=== PATIENT | female | born 1945 | race Caucasian/White ===

== ENCOUNTER → 2019-09-17 13:35 | Outpatient (BNVA) | payer MEDICARE, OTHER, SELFPAY | PROVIDERS: Family Provider Nurse Practitioner; PCP Nurse Practitioner Family; Visit Provider Nurse Practitioner Family | DX: M25.562 Pain in left knee (principal); M85.88 Other specified disorders of bone density and structure, other site | CPT/HCPCS: 73562 ==

== ENCOUNTER → 2019-11-02 15:12 | Outpatient (BNVA) | payer MEDICARE, OTHER, SELFPAY | PROVIDERS: Family Provider Nurse Practitioner; PCP Family Medicine; Visit Provider Nurse Practitioner Family | DX: M54.9 Dorsalgia, unspecified (principal); M25.551 Pain in right hip | CPT/HCPCS: 81000; 85025 ==

== ENCOUNTER → 2019-11-15 13:19 | Outpatient (BNVA) | payer MEDICARE, OTHER, SELFPAY | PROVIDERS: Family Provider Nurse Practitioner; PCP Family Medicine; Visit Provider Orthopaedic Surgery | DX: M25.511 Pain in right shoulder (principal); M19.011 Primary osteoarthritis, right shoulder | CPT/HCPCS: 73030 ==

== ENCOUNTER → 2020-01-18 12:16 | Outpatient (BNVA) | payer MEDICARE, OTHER, SELFPAY | PROVIDERS: Family Provider Nurse Practitioner; PCP Family Medicine; Visit Provider Family Medicine | DX: M25.562 Pain in left knee (principal) | CPT/HCPCS: 73562 ==

== ENCOUNTER → 2020-03-20 16:14 | Outpatient (BNVA) | payer MEDICARE, OTHER, SELFPAY | PROVIDERS: Family Provider Nurse Practitioner; PCP Family Medicine; Visit Provider Family Medicine | DX: R10.31 Right lower quadrant pain (principal); N39.0 Urinary tract infection, site not specified; R31.9 Hematuria, unspecified | CPT/HCPCS: 80053 ==

== ENCOUNTER 2020-07-04 19:59 | Emergency (ER) | payer MEDICARE, OTHER, SELFPAY ==
[2020-07-04] VITALS (7 sets, daily range): BP systolic 113–160; BP diastolic 75–94; PULSE 88–96; RESP 16–18; TEMP 37.4; O2SAT 97–99; BMI 24.3
--- NOTE | 2020-07-04 20:18 | CTR_ITS ---
PROCEDURE INFORMATION: Exam: CT Head Without Contrast Exam date and time: 07/04/2020 8:24 PM Age: 74 years old Clinical indication: Injury or trauma; Fall; Blunt trauma (contusions or hematomas); Without loss of consciousness; Additional info: Fall, weakness TECHNIQUE: Imaging protocol: Computed tomography of the head without contrast. Radiation optimization: All CT scans at this facility use at least one of these dose optimization techniques: automated exposure control; mA and/or kV adjustment per patient size (includes targeted exams where dose is matched to clinical indication); or iterative reconstruction. COMPARISON: [place] [id number] 08/30/2017 1:31 PM RADIATION DOSE METRICS: Total DLP (mGy-cm): 731.3 FINDINGS: Brain: There is marked cerebral atrophy. There is moderate diffuse heterogeneity of the white matter attenuation, consistent with chronic white matter ischemic changes. No intracranial hemorrhage. No midline shift of brain. No mass effect on the brain. No intracranial mass. No acute brain ischemia. No cerebral sulcal effacement. Cerebral ventricles: No ventriculomegaly. Bones/joints: Unremarkable. No acute fracture. Paranasal sinuses: Moderate fluid level in the right maxillary sinus. Scattered partially opacified right ethmoid air cells. Mastoid air cells: Visualized mastoid air cells are well aerated. Vasculature: Intracranial atherosclerosis. Intracranial atherosclerosis. Soft tissues: Unremarkable. CT/CT head wo con* [id number] IMPRESSION: 1. Negative for intracranial injury. 2. No significant change in brain from comparison 08/30/2017. 3. Right paranasal sinus disease. Radiation Dose CTDIVOL = (mGy): DLP = 731.3 (mGy-cm)
--- NOTE | 2020-07-04 20:18 | XRR_ITS ---
PROCEDURE INFORMATION: Exam: XR Chest, 1 View Exam date and time: 07/04/2020 8:27 PM Age: 74 years old Clinical indication: Injury or trauma; Fall; Blunt trauma (contusions or hematomas) TECHNIQUE: Imaging protocol: XR of the chest Views: 1 view. COMPARISON: CR Ribs RIGHT w PA Chest [id number] 04/14/2018 5:53 PM FINDINGS: Tubes, catheters and devices: Thoracic spine epidural stimulator device. Lungs: Unremarkable. No consolidation. Pleural spaces: Unremarkable. No pleural effusion. No pneumothorax. Heart/Mediastinum: Unremarkable. No cardiomegaly. Bones/joints: Surgical anchors in the right humeral head. Diffuse osseous demineralization. No acute fractures identified. XR/XR chest 1V portable [id number] IMPRESSION: No acute pulmonary disease.
--- NOTE | 2020-07-04 20:21 | ECG_ITS ---
[facility] Test Date: 2020-07-04 Pat Name: Brenda De León Department: Room: Gender: Female Underwriter Solicitation Director: : 1945 Requested By: Valeriy Franco Order Number: [id number] Myles MD: Denisse Long M.D. Measurements Intervals [place] Rate: 87 P: 68 AR: 195 QRS: -45 QRSD: 83 T: 22 QT: 375 QTc: 452 Interpretive Statements SINUS RHYTHM LEFT AXIS DEVIATION [QRS AXIS < -30] Compared to ECG 08/02/2018 15:10:00 No significant changes Electronically Signed On 07-04-2020 22:06:26 WAX POURER by Denisse Long M.D. [email or web address] [email or web address]/[id number]
--- NOTE | 2020-07-04 20:43 | ED_ITS ---
HPI - Fall General: Chief Complaint: Fall Stated Complaint: post fall/ams/more confused Time Seen by Provider: 07/04/20 20:01 History of Present Illness: HPI Narrative: 74-year-old female presents with a fall in her bathroom. She states that she thinks she was down for about 30 minutes. She lives alone. She could not get out of the floor. She called her daughter who I believe called the paramedics. She was able to get up with their help. She complains of chronic low back pain that is not increased from prior after her fall. She denies syncope. She states she was awake the whole time. She also does not believe she hit her head. Family said that she had had some worsening confusion lately. She does have a pretty clear history of dementia. She denies any fevers, cough, shortness of breath, chest discomfort. MD complaint: fall Onset (ago): hour(s) Fall from: standing Fall witnessed: no Place fall occurred: home Loss of consciousness: None Prolonged down time: unclear and minute(s) (30?) Symptoms prior to fall: none Location of injury: other Associated symptoms-after fall: Reports confusion and weakness (Generalized); Denies abdominal pain, chest pain, headache(s), hematuria, neck pain, short of breath or vertigo Review of Systems Const: Denies: fever(s) or chills Eyes: Denies: change in vision ENMT: Denies: odynophagia or sinus pain Card: Denies: chest pain, palpitations or irregular heart rhythm Resp: Denies: dyspnea, productive cough, non-productive cough or wheezing GI: Denies: abdominal pain, nausea or vomiting : Denies: dysuria or hematuria Musc: Reports: back pain; Denies: neck pain Skin/Breast: Denies: rash or erythema Neuro: Reports: confusion; Denies: headache(s) or vertigo Psych: Denies: anxiety PFSH ED PFSH: Medical History (Updated 07/05/20 @ 00:24 by Valeriy Quiroz DO) Acquired spondylolisthesis Breast tumor Cervical disc disease Chronic right shoulder pain Chronic seasonal allergic rhinitis due to pollen Degeneration of lumbar or lumbosacral intervertebral disc Diabetes Disorder of skin Essential hypertension Frontal lobe deficit Hypertriglyceridemia Low back pain Memory change Vitamin B 12 deficiency Vitamin D deficiency Surgical History H/O arthroscopic knee surgery History of appendectomy History of arthroscopic surgery of shoulder History of carpal tunnel surgery of left wrist History of cholecystectomy Family History Other Alcohol abuse Allergies Arthritis Cervical disc disease Heart disease Social History Smoking and tobacco status: never smoked Alcohol intake: never Household members: none Housing: Manufactured/Mobile home Marital status: / Current occupational status: retired Physical Exam Const: GENERAL APPEARANCE: well developed ORIENTATION/CONSCIOUSNESS: Yes oriented to person and Yes oriented to place; not oriented to time HENMT: COMMON NORMALS: normocephalic, external ears normal and Normal external nose present HEAD & SCALP: normocephalic FACE & SINUS: normal facial exam NOSE: Normal external nose present and No nasal discharge present EXTERNAL EAR: Yes external ears normal Eye: COMMON NORMALS: Equal, round and reactive pupils present, EOMs intact bilaterally and conjunctivae normal EYELID: eyelids normal CONJUNCTIVA: Yes conjunctivae normal PUPIL: Yes Equal, round and reactive pupils present Neck/C-Spine: GENERAL: No tracheal deviation CERVICAL SPINE: Yes normal cervical lordosis and No Cervical spine tenderness Chest: COMMONS NORMALS: normal inspection of the chest CHEST: No tenderness Resp: COMMON NORMALS: clear to auscultation bilaterally EFFORT & INSPECTION: No tachypneic, No respiratory distress, No retractions, No uses accessory muscles and No tracheal deviation AUSCULTATION: clear to auscultation bilaterally, no rhonchi, no wheezes and lung sounds not diminished Cardio: COMMON NORMALS: regular rate and regular rhythm RATE: regular rate RHYTHM: regular rhythm HEART SOUNDS: no murmurs PERIPHERAL PULSES: radial pulses present GI: INSPECTION: No abdominal distension AUSCULTATION: No Hyperactive bowel sounds present and No Hypoactive bowel sounds present PALPATION: No Guarding due to palpation present (GI) and No Rigid due to palpation PERCUSSION: no dullness to percussion and no tympanic to percussion Neuro: SENSORIUM/ORIENTATION: Yes oriented to person, Yes oriented to place and No oriented to time Skin: COMMON NORMALS: no rashes or lesions noted GENERAL SKIN EXAM: no rashes or lesions noted Course Vital Signs: Vital signs: Vital Signs Temperature 99.3 F 07/04/20 20:01 Pulse Rate 91 07/05/20 00:40 Respiratory Rate 17 07/05/20 00:40 Blood Pressure 134/82 07/05/20 00:40 Pulse Oximetry 98 07/05/20 00:40 MDM - Fall MDM Narrative: Medical decision making narrative: 74-year-old female with a fall at home. She may or may not have had a syncopal episode. Her head CT is negative, save a small scalp hematoma. Her only complaint is chronic back pain. Her hemoglobin is 9.2. Creatinine 1.2. Her first troponin was mildly elevated, but did not change at 2 hours. Her EKG shows no acute ST changes, with a rate of 90, and intermediate axis and normal intervals. Urinalysis is negative. Chest x-ray is negative. She will walk in the ER, and if able return home. Family is encouraged to stay with her for 24 hours. Lab Data: Labs: Lab Results 07/04/20 07/04/20 07/04/20 Range/Units 20:15 21:16 21:16 WBC 7.1 (4.0-10.0) 10^3/ uL RBC 4.05 L (4.1-5.3) 10^6/u L Hgb 9.2 L (11.5-15.3) g/dL Hct 31.0 L (37.0-47.0) % MCV 76.5 L (81-99) fL MCH 22.7 L (28.0-34.0) pg MCHC 29.7 L (30.0-36.0) g/dL RDW 17.2 H (12.1-15.1) % Plt Count 512 H (130-400) 10^3/c mm MPV 9.8 (7.4-10.4) fL Neut % (Auto) 73.2 % Lymph % (Auto) 17.5 % Robeson % (Auto) 8.2 % Eos % (Auto) 0.6 % Baso % (Auto) 0.4 % Neut # (Auto) 5.18 (1.8-7.7) 10^3/u L Lymph # (Auto) 1.2 (0.8-4.8) 10^3/u L Robeson # (Auto) 0.6 (0.2-0.9) 10^3/u L Eos # (Auto) 0.0 (0.0-0.8) 10^3/u L Baso # (Auto) 0.0 (0.0-0.1) 10^3/u L Nucleated RBC % (a uto) 0 % Nucleated RBCs # 0.0 /100WBC Sodium 140 (136-145) mmol/L Potassium 3.8 (3.5-5.1) mmol/L Chloride 102 (98-107) mmol/L Carbon Dioxide 26 (22-29) mmol/L Anion Gap 15.8 (5-19) BUN 18 (8-23) mg/dL Creatinine 1.2 H (0.5-0.9) mg/dL GFR Calculation Not Reportable Glucose 131 H (65-115) mg/dL Calculated Osmolal ity 294 (285-295) mOsm/k g Calcium 9.1 (8.5-10.5) mg/dL Magnesium 2.1 (1.7-2.3) mg/dL Total Bilirubin 0.2 (0.15-1.2) mg/dL AST 16 (0-32) U/L ALT 14 (0-33) U/L Alkaline Phosphata se 82 (35-105) IU/L Troponin T Baselin e (0-10) ng/L Troponin T 120 Min chitimacha (0-10) ng/L Delta Troponin T (0-10) ABS# Total Protein 6.5 L (6.6-8.7) g/dL Albumin 3.9 (3.5-5.2) g/dL Globulin 2.6 (1.3-4.6) g/dL Urine Color Yellow (Yellow) Urine Appearance Sl hazy (CLEAR) Urine pH 5 (5-7) Ur Specific Gravit y 1.020 (1.005-1.030) Urine Protein Neg (Negative) Urine Glucose (UA) Norm (Normal) Urine Ketones Negative (Negative) Urine Blood 2+ H (Negative) Urine Nitrate Negative (Negative) Urine Bilirubin Neg (Negative) Urine Urobilinogen Norm (Negative) mg/dL Ur Leukocyte Lori ase Negative (Negative) Urine RBC 0-4 H (0-2) /hpf Urine WBC 0-4 H (0-5) /hpf Ur Squamous Epith Cells 5-10 H (0-5) /hpf Amorphous Sediment 1+ /hpf Urine Bacteria 1+ H (NONE) /hpf 07/04/20 07/04/20 Range/Units 21:16 23:33 WBC (4.0-10.0) 10^3/ uL RBC (4.1-5.3) 10^6/u L Hgb (11.5-15.3) g/dL Hct (37.0-47.0) % MCV (81-99) fL MCH (28.0-34.0) pg MCHC (30.0-36.0) g/dL RDW (12.1-15.1) % Plt Count (130-400) 10^3/c mm MPV (7.4-10.4) fL Neut % (Auto) % Lymph % (Auto) % Robeson % (Auto) % Eos % (Auto) % Baso % (Auto) % Neut # (Auto) (1.8-7.7) 10^3/u L Lymph # (Auto) (0.8-4.8) 10^3/u L Robeson # (Auto) (0.2-0.9) 10^3/u L Eos # (Auto) (0.0-0.8) 10^3/u L Baso # (Auto) (0.0-0.1) 10^3/u L Nucleated RBC % (a uto) % Nucleated RBCs # /100WBC Sodium (136-145) mmol/L Potassium (3.5-5.1) mmol/L Chloride (98-107) mmol/L Carbon Dioxide (22-29) mmol/L Anion Gap (5-19) BUN (8-23) mg/dL Creatinine (0.5-0.9) mg/dL GFR Calculation Glucose (65-115) mg/dL Calculated Osmolal ity (285-295) mOsm/k g Calcium (8.5-10.5) mg/dL Magnesium (1.7-2.3) mg/dL Total Bilirubin (0.15-1.2) mg/dL AST (0-32) U/L ALT (0-33) U/L Alkaline Phosphata se (35-105) IU/L Troponin T Baselin e 11 H (0-10) ng/L Troponin T 120 Min chitimacha 10.69 H (0-10) ng/L Delta Troponin T -0.31 L (0-10) ABS# Total Protein (6.6-8.7) g/dL Albumin (3.5-5.2) g/dL Globulin (1.3-4.6) g/dL Urine Color (Yellow) Urine Appearance (CLEAR) Urine pH (5-7) Ur Specific Gravit y (1.005-1.030) Urine Protein (Negative) Urine Glucose (UA) (Normal) Urine Ketones (Negative) Urine Blood (Negative) Urine Nitrate (Negative) Urine Bilirubin (Negative) Urine Urobilinogen (Negative) mg/dL Ur Leukocyte Lori ase (Negative) Urine RBC (0-2) /hpf Urine WBC (0-5) /hpf Ur Squamous Epith Cells (0-5) /hpf Amorphous Sediment /hpf Urine Bacteria (NONE) /hpf Discharge Plan Discharge Patient Disposition: Home Clinical Impression: Advancing dementia Accident due to mechanical fall without injury Qualifiers: Encounter type: initial encounter Qualified Code(s): W19.XXXA - Unspecified fall, initial encounter Condition: Stable Prescriptions: No Action cetirizine 10 mg tablet 5 mg PO DAILY RF: 0 betamethasone acet,sod phos [Celestone Soluspan] 6 mg/mL suspension 6 mg INTRA-SAHLEIGH ONCE Qty: 1 RF: 0 bupivacaine (PF) 0.5 % (5 mg/mL) solution 10 mg INTRA-ASHLEIGH ONCE Qty: 2 RF: 0 lidocaine (PF) 10 mg/mL (1 %) solution 20 mg INTRA-ASHLEIGH ONCE Qty: 2 RF: 0 betamethasone acet,sod phos [Celestone Soluspan] 6 mg/mL suspension 6 mg INTRA-ASHLEIGH ONCE Qty: 1 RF: 0 bupivacaine (PF) 0.5 % (5 mg/mL) solution 5 mg INTRA-ASHLEIGH ONCE Qty: 2 RF: 0 lidocaine (PF) 10 mg/mL (1 %) solution 10 mg INTRA-ASHLEIGH ONCE Qty: 2 RF: 0 sulfamethoxazole-trimethoprim [Bactrim DS] 800-160 mg tablet 1 tab PO Q12H 10 Days Qty: 20 RF: 0 phenazopyridine [Pyridium] 200 mg tablet 200 mg PO TID Qty: 20 RF: 0 pantoprazole [Protonix] 40 mg tablet,delayed release (DR/EC) 40 mg PO DAILY 30 Days Qty: 30 RF: 1 cyclobenzaprine 5 mg tablet 5 mg PO TID PRN (Reason: pain) Qty: 20 RF: 0 donepezil [Aricept] 5 mg tablet 5 mg PO DAILY Qty: 90 RF: 1 memantine [Namenda] 10 mg tablet 10 mg PO BID Qty: 180 RF: 2 mirtazapine 15 mg tablet 15 mg PO DAILY Qty: 90 RF: 0 topiramate 50 mg tablet 50 mg PO BID Qty: 180 RF: 0 lisinopril 20 mg tablet See Rx Instructions .ROUTE .COMPLEX Qty: 90 RF: 3 metoprolol succinate [Toprol XL] 50 mg tablet extended release 24 hr See Rx Instructions .ROUTE .COMPLEX Qty: 90 RF: 3 fenofibrate nanocrystallized [Tricor] 145 mg tablet 145 mg PO DAILY Qty: 90 RF: 0 furosemide 20 mg tablet 20 mg PO BID Qty: 180 RF: 0 fluconazole [Diflucan] 150 mg tablet 150 mg PO DAILY 3 Days Qty: 3 RF: 0 diclofenac sodium [Voltaren] 1 % gel 4 g TOPICAL QID PRN (Reason: pain) 30 Days Qty: 100 RF: 1 Discharge Orders: Discharge ED (Routine); Ordered 07/05/20 Ordered By: Valeriy Quiroz Referrals: Anna Marie Barillas MD [Primary Care Provider] - Discharge Diet: Advance as tolerated Discharge Activity: Increase activity as tolerated Patient Instructions: Dementia (ED), Fall Prevention for Older Adults (ED) Activity Restrictions/Additional Instructions: Return for worsening mental status, fever greater than 100, more frequent falls, chest discomfort, shortness of breath, other concerning symptoms. Coding Level of Care Code ED Transformer Tester for Chg Fwd Exam Comprehensive
[2020-07-04] MEDS: sodium chloride 0.9% 500 ML IV (20:45)
--- NOTE | 2020-07-04 20:49 | PC.NURSE ---
xray in room
[2020-07-04 20:55] LABS: Add Urine Microscopic? YES; Bilirubin Urine Neg (Negative); Blood Urine 2+ (Negative); Glucose Urine UA Norm (Normal); Ketones Urine Negative (Negative); Leukocyte Esterase Urine Negative (Negative); Nitrate Urine Negative (Negative); Protein Urine Neg (Negative); Urine Appearance SL Hazy (CLEAR); Urine Color Yellow (Yellow); Urobilinogen Urine Norm (Negative); pH Urine 5 (5-7)
[2020-07-04 21:06] LABS: RBC Urine 0-4 /hpf (0-2); WBC Urine 0-4 /hpf (0-5)
[2020-07-04 21:07] LABS: Add Urine Culture? No; Amorphous Sediment Urine 1+ /hpf; Bacteria Urine 1+ /hpf
[2020-07-04 21:24] LABS: Basophils % 0.4 %; Eosinophils % 0.6 %; Hemoglobin 9.2 g/dL (11.5-15.3); Lymphocytes # 1.2 10^3/uL (0.8-4.8); Lymphocytes % 17.5 %; Mean Corpuscular HGB Conc 29.7 g/dL (30.0-36.0); Mean Corpuscular Hemoglobin 22.7 pg (28.0-34.0); Mean Corpuscular Volume 76.5 fL (81-99); Mean Platelet Volume 9.8 fL (7.4-10.4); Monocytes # 0.6 10^3/uL (0.2-0.9); Monocytes % 8.2 %; Neutrophils # 5.18 10^3/uL (1.8-7.7); Neutrophils % 73.2 %; Nucleated Red Blood Cells % 0 %; Platelet Count 512 10^3/cmm (130-400); Red Blood Count 4.05 10^6/uL (4.1-5.3); Red Cell Distribution Width 17.2 % (12.1-15.1); White Blood Count 7.1 10^3/uL (4.0-10.0)
--- NOTE | 2020-07-04 21:29 | PC.NURSE ---
patient up to bedside commode with nurse assist.
[2020-07-04 21:41] LABS: Alanine Aminotransferase 14 U/L (0-33); Albumin Level 3.9 g/dL (3.5-5.2); Alkaline Phosphatase 82 IU/L (35-105); Anion Gap 15.8 (5-19); Aspartate Amino Transferase 16 U/L (0-32); Blood Urea Nitrogen 18 mg/dL (8-23); Calcium 9.1 mg/dL (8.5-10.5); Carbon Dioxide 26 mmol/L (22-29); Chloride 102 mmol/L (98-107); Globulin 2.6 g/dL (1.3-4.6); Glucose 131 mg/dL (65-115); Magnesium 2.1 mg/dL (1.7-2.3); Osmolality Calculated 294 mOsm/kg (285-295); Potassium 3.8 mmol/L (3.5-5.1); Sodium 140 mmol/L (136-145); Total Bilirubin 0.2 mg/dL (0.15-1.2); Total Protein 6.5 g/dL (6.6-8.7)
[2020-07-04 21:43] LABS: Troponin(5th) Baseline 11 ng/L (0-10)
--- NOTE | 2020-07-04 22:21 | ECG_ITS ---
[facility] Test Date: 2020-07-04 Pat Name: Brenda De León Department: Room: Gender: Female Low Altitude Air Defense Gunner: : 1945 Requested By: Valeriy Franco Order Number: [id number] Myles MD: Lenny Dee M.D. Measurements Intervals [place] Rate: 92 P: 68 CA: 197 QRS: -58 QRSD: 90 T: 41 QT: 362 QTc: 450 Interpretive Statements SINUS RHYTHM NONSPECIFIC T-WAVE ABNORMALITY Compared to ECG 07/04/2020 22:04:35 Indeterminate axis now present T-wave abnormality now present Left-axis deviation no longer present Electronically Signed On 07-05-2020 15:31:46 ANGER CONTROL COUNSELOR by Lenny Dee M.D. [id number] f
[2020-07-05 00:07] LABS: Troponin 5 2HR 10.69 ng/L (0-10); Troponin 5 2HR Delta -0.31 ABS# (0-10)
[2020-07-05 00:26] VITALS: BP 147/84; PULSE 90; RESP 18; O2SAT 99
[2020-07-05 00:40] VITALS: BP 134/82; PULSE 91; RESP 17; O2SAT 98
== END 2020-07-05 00:36 | disposition home or self-care (01) ==
PROVIDERS: Emergency Provider Emergency Medicine; PCP Family Medicine
DX: F03.90 Unspecified dementia, unspecified severity, without behavioral disturbance, psychotic disturbance, mood disturbance, and anxiety (principal); W19.XXXA Unspecified fall, initial encounter; E11.9 Type 2 diabetes mellitus without complications; I10 Essential (primary) hypertension
CPT/HCPCS: 12345; 70450; 71045; 80053; 81001; 83735; 84484; 85025; 93005; 96360; 99283; J7040

== ENCOUNTER → 2020-12-24 15:49 | Outpatient (BNVA) | payer MEDICARE, OTHER, SELFPAY | PROVIDERS: PCP Family Medicine; Visit Provider Family Medicine | DX: F03.90 Unspecified dementia, unspecified severity, without behavioral disturbance, psychotic disturbance, mood disturbance, and anxiety (principal); N39.0 Urinary tract infection, site not specified; R31.9 Hematuria, unspecified; E87.6 Hypokalemia | CPT/HCPCS: 80048; 81003 ==

== ENCOUNTER → 2021-01-14 12:54 | Outpatient (BNVA) | payer MEDICARE, OTHER, SELFPAY | PROVIDERS: PCP Family Medicine; Visit Provider Nurse Practitioner | DX: R74.8 Abnormal levels of other serum enzymes (principal) | CPT/HCPCS: 80053 ==

== ENCOUNTER → 2021-01-23 08:28 | Outpatient (BNVA) | payer MEDICARE, OTHER, SELFPAY | PROVIDERS: PCP Family Medicine; Visit Provider Nurse Practitioner | DX: F03.90 Unspecified dementia, unspecified severity, without behavioral disturbance, psychotic disturbance, mood disturbance, and anxiety (principal); R73.9 Hyperglycemia, unspecified; E55.9 Vitamin D deficiency, unspecified; E53.8 Deficiency of other specified B group vitamins; I10 Essential (primary) hypertension; D64.9 Anemia, unspecified | CPT/HCPCS: 80053; 82306; 82607; 83036; 83540; 84443; 85025 ==

== ENCOUNTER 2021-01-28 15:56 | Outpatient (CLI) | payer MEDICARE, OTHER, SELFPAY | END 2021-01-28 15:57 | disposition home or self-care (01) | LOC: LAB 16:00 | PROVIDERS: PCP Family Medicine; Visit Provider Nurse Practitioner | DX: D64.9 Anemia, unspecified (principal); E61.1 Iron deficiency | CPT/HCPCS: 36415; 86850; 86900 ==

== ENCOUNTER → 2021-01-30 06:52 | Day surgery (SDC) | payer MEDICARE, OTHER, SELFPAY ==
[2021-01-30 07:33] VITALS: BP 129/85; PULSE 79; RESP 18; TEMP 36.1; O2SAT 98; BMI 27.8
[2021-01-30] MEDS: sodium chloride 0.9% (100 ml) 200 ML 30 ML (08:32)
[2021-01-30 08:36] VITALS: BP 129/73; PULSE 82; RESP 18; TEMP 36.2; O2SAT 98
[2021-01-30 08:46] VITALS: BP 148/69; PULSE 84; RESP 18; TEMP 36.6; O2SAT 99
[2021-01-30 09:15] VITALS: BP 138/72; PULSE 84; RESP 18; TEMP 36.6; O2SAT 98
[2021-01-30 10:13] VITALS: BP 111/87; PULSE 81; RESP 16; TEMP 36.8; O2SAT 98
[2021-01-30 10:35] VITALS: BP 140/81; PULSE 81; RESP 18; TEMP 36.9; O2SAT 98
== END ==
PROVIDERS: PCP Nurse Practitioner; Visit Provider Nurse Practitioner
DX: D64.9 Anemia, unspecified (principal)
CPT/HCPCS: 36415; 36430; 86850; 86900; 86920; P9016

== ENCOUNTER 2021-02-13 12:13 | Outpatient (CLI) | payer MEDICARE, OTHER, SELFPAY ==
--- NOTE | 2021-02-13 13:30 | CT_ITS ---
WS: [id number] CT ABDOMEN AND PELVIS WITH CONTRAST HISTORY: D64.9 - Anemia, unspecified TECHNIQUE: Imaging performed of the abdomen and pelvis with IV contrast. Single phase imaging of the abdomen. Coronal and sagittal reformats are submitted. All CT scans at [facility] use at [facility] one of these dose optimization techniques: automated exposure control; mA and/or kV adjustment per patient size (includes targeted exams where dose is matched to clinical indication); or iterative re construction. IV CONTRAST: Omnipaque 300; 95 mL IV. Oral contrast: Yes. DLP: 1086.36 mGycm COMPARISON: None available. Lower thorax: Lung bases are clear. Heart is normal size. Small hiatal hernia. Liver/biliary system: There are 2 hypodensities within the liver. These may be small hemangiomas or c ysts. Early metastatic lesions not excluded. Portal vein is normal. No bile duct dilatation. Gallbladder: Status post cholecystectomy. Pancreas: Atrophied pancreas. No mass. Spleen: Normal size spleen. No mass or infarct. Adrenal glands: Normal. Right kidney: Large cyst upper pole measures 6.3 cm. No solid mass or obstruction. Left kidney: Mild atrophy of the LEFT kidney. No obstruction or mass. Aorta: Mild atherosclerosis with no aneurysm. Lymphadenopathy: None. Free fluid: None. GI tract: Abnormal soft tissue thickening involving the cecum and distal terminal ileum. There is cir cumferential soft tissue thickening extending over a length of 6 cm. There is an adjacent lymph node measuring 12 mm. Smaller lymph nodes with pericecal fat stranding is also present. Appendix is not de finitely identified. Abdominal wall: Unremarkable abdominal wall. No hernia. Pelvis: Uterus is midline and slightly retroverted. No shaded with the RIGHT ovary measures 4.1 cm. B ladder is negative. No adenopathy or ascites. Bones: Marked rotoscoliosis of the lumbar spine with convexity to the LEFT. Advanced degenerative asy mmetric disc space narrowing. CT/CT abdomen pelvis w con* [id number] IMPRESSION: 1. 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 Highly suspicious for colonic neoplasm until proven otherwise. Recomm end follow-up colonoscopy. 2. Appendix is not identified and may be involved in the neoplastic process. 3. No metastatic disease to the adrenal glands. 4. There are 2 low-attenuation lesions in the RIGHT lobe of the liver. Very no nspecific and too small to characterize. Cannot exclude metastatic disease, cys ts or hemangiomas.
[2021-02-13] MEDS: iodixanol 320 mg/mL 100mL Btl IV (13:53)
[2021-02-13] MEDS: iohexol 300 mg/mL 50 mL Btl IV (13:59)
== END 2021-02-13 12:14 | disposition home or self-care (01) ==
LOC: RADWPI 12:18
PROVIDERS: PCP Nurse Practitioner; Visit Provider Nurse Practitioner
DX: D64.9 Anemia, unspecified (principal); R19.09 Other intra-abdominal and pelvic swelling, mass and lump; K76.9 Liver disease, unspecified
CPT/HCPCS: 74177; Q9967

== ENCOUNTER → 2021-03-04 12:19 | Outpatient (BNVA) | payer MEDICARE, OTHER, SELFPAY | PROVIDERS: PCP Nurse Practitioner; Visit Provider Nurse Practitioner | DX: D64.9 Anemia, unspecified (principal) | CPT/HCPCS: 85025 ==

== ENCOUNTER → 2021-03-19 07:40 | Outpatient (BNVA) | payer MEDICARE, OTHER, SELFPAY | PROVIDERS: PCP Nurse Practitioner; Visit Provider Surgery | DX: D64.9 Anemia, unspecified (principal); K59.09 Other constipation; Z20.822 Contact with and (suspected) exposure to COVID-19; Z01.812 Encounter for preprocedural laboratory examination; I10 Essential (primary) hypertension | CPT/HCPCS: 81000; 87635 ==

== ENCOUNTER 2021-03-25 09:00 | Day surgery (SDC) | payer MEDICARE, OTHER, SELFPAY ==
[2021-03-23 12:52] VITALS: BMI 28.3
[2021-03-25 09:43] VITALS: BP 159/77; PULSE 99; RESP 18; TEMP 36.1; O2SAT 100
--- NOTE | 2021-03-25 09:45 | P.HP_ITS ---
Same Day Surgery H&P Indication for Procedure/HPI DATE OF PROCEDURE: March 25, 2021 CHIEF COMPLAINT/INDICATIONFOR SURGICAL PROCEDURE: I am here for endoscopy PREOP DIAGNOSIS: Iron deficiency anemia PLANNED PROCEDRUE: Operation Date: 03/25/21 10:15 Proposed Procedures p EGD/colon 80726 [id number] D64.9 K59.09(Not Applicable) - Victor Hugo Judge MD s Colonoscopy(Not Applicable) - Victor Hugo Judge MD This is a pleasant 75 years old female patient comes today to my practice escorted by her son, with history of repeated falls that required blood work and showed that the patient is anemic and required blood transfusion. Most recent hemoglobin is 7.9 g/dL. Apparently the patient undergone EGD back in 2011 that showed gastritis and a colonoscopy that showed internal hemorrhoids and melanosis coli. Patient reports that no evidence of hematemesis or hematochezia. Ever since patient never had any endoscopies. Patient is referr ed to my practice for consideration for endoscopies for her iron deficiency anemia that requires blood transfusion and her repeated falls. Interim history 03/25/2021 Patient comes today for diagnostic EGD and colonoscopy. CT scan of the abdomen and pelvis was done and did show findings below 1. 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 Highly suspicious for colonic neoplasm until proven otherwise. Recommend follow-up colonoscopy. 2. Appendix is not identified and may be involved in the neoplastic process. 3. No metastatic disease to the adrenal glands. 4. There are 2 low-attenuation lesions in the RIGHT lobe of the liver. Very nonspecific and too small to characterize. Cannot exclude metastatic disease, cysts or hemangiomas. ROS All systems have been reviewed negative except as per the above or per problem list Medications/Allergies* Home Medications Medication Instructions Recorded Confirmed Type cetirizine 10 mg tablet 5 mg PO DAILY 08/22/19 03/25/21 History epinephrine 0.3 mg/0.3 mL 0.3 mg IM ONCE ea 12/31/20 03/25/21 History injection, auto-injector oxycodone-acetaminophen 5 mg-325 1 tab PO .HS tab 01/08/21 03/23/21 History mg tablet Allergies/Adverse Reactions Allergy/AdvReac Type Severity Reaction Status Date / Time codeine AdvReac Unknown Verified 03/25/21 09:47 cortisone AdvReac Unknown Verified 03/25/21 09:47 naproxen AdvReac Unknown Verified 03/25/21 09:47 Pertinent History/Comorbid Conditions* Medical History (Updated 02/05/21 @ 08:44 by Victor Hugo Judge MD) Acquired spondylolisthesis Allergic reaction to insect sting Wasp Breast tumor Cervical disc disease Chronic constipation Chronic right shoulder pain Chronic seasonal allergic rhinitis due to pollen Degeneration of lumbar or lumbosacral intervertebral disc Essential hypertension Frontal lobe deficit Hypertriglyceridemia Lives in assisted living facility Vitamin B 12 deficiency Vitamin D deficiency Surgical History (Updated 12/31/20 @ 16:21 by MARY MayoP-C) H/O arthroscopic knee surgery History of appendectomy History of arthroscopic surgery of shoulder History of carpal tunnel surgery of left wrist History of cholecystectomy History of left breast biopsy Negative biopsy Family History (Updated 08/22/19 @ 13:49 by Jaiden Ojeda) Alcohol abuse Arthritis Heart disease Allergies Cervical disc disease Social History Smoking and tobacco status: never smoked Alcohol intake: never Adopted: No Caregiver/support person: Yes Lives independently: No Household members: caregiver Housing: Assisted Living Facility Marital status: / Number of children: 3 Current occupational status: retired Current gender identity: Female Renetta/Zoroastrianism: Yazidism [employer] Pertinent Exam Findings alert, regular rate & rhythm and procedure specific exam findings (Abdominal examination nontender nondistended soft) Recommendations Surgery/Procedure today (EGD and colonoscopy. With possible biopsy) Coding Level of Care Code Acute Breakfast And Room Attendant for Myron Ladd
--- NOTE | 2021-03-25 09:48 | P.ANESASSM_ITS ---
Pre-Anesthetic Assessment Pre-Anesthetic Assessment: Height/Weight: Height 1.65 m Weight 77.111 kg Preop Diagnosis: Iron deficiency anemia Proposed Procedure: Operation Date: 03/25/21 10:15 Proposed Procedures p EGD/colon 90744 [id number] D64.9 K59.09(Not Applicable) - MD nazario Mccollum Colonoscopy(Not Applicable) - Victor Hugo Judge MD Was Beta Sue taken within 24 hours: N/A Was Clonidine taken within 24 hours: N/A Social: Social History: No alcohol and No tobacco Exam: Pre-Anes Outpt Exam: alert, clear to auscultation bilaterally and regular rate & rhythm Airway: Submandibular: WNL Cervical ROM: WNL MP: 2 Dentition: Chipped CV/HEM: CV/HEM: Anemia and HTN GI: GI: GERD Neuropsych: Neuropsych: Dementia Anesthetic Plan: ASA status: 3 Anesthesia: MAC Risk of > 500 ml blood loss (7ml/kg in children): No PFSH Anesthesia PFSH: Medical History Acquired spondylolisthesis Allergic reaction to insect sting Wasp Breast tumor Cervical disc disease Chronic constipation Chronic right shoulder pain Chronic seasonal allergic rhinitis due to pollen Degeneration of lumbar or lumbosacral intervertebral disc Essential hypertension Frontal lobe deficit Hypertriglyceridemia Lives in assisted living facility Vitamin B 12 deficiency Vitamin D deficiency Surgical History H/O arthroscopic knee surgery History of appendectomy History of arthroscopic surgery of shoulder History of carpal tunnel surgery of left wrist History of cholecystectomy History of left breast biopsy Negative biopsy Family History Other Alcohol abuse Allergies Arthritis Cervical disc disease Heart disease Social History Smoking and tobacco status: never smoked Alcohol intake: never Adopted: No Caregiver/support person: Yes Lives independently: No Household members: caregiver Housing: Assisted Living Facility Marital status: / Number of children: 3 Current occupational status: retired Current gender identity: Female Renetta/Restorationism: Yazidism [employer] Data Anesthesia Cardiac Studies: No Data to Display
[2021-03-25] MEDS: sodium chloride 0.9% 1,000 ML 30 ML IV (09:53)
[2021-03-25 10:58] VITALS: BP 122/64; PULSE 95; RESP 16; TEMP 36.1; O2SAT 97
[2021-03-25 11:11] VITALS: BP 139/84; PULSE 83; RESP 16; O2SAT 96
--- NOTE | 2021-03-25 11:40 | ANE.PACU2 ---
Inpatient post-anesthesia follow up: Airway intact: Yes Vital signs: Temperature 97.0 F Pulse Rate 83 Respiratory Rate 16 Blood Pressure 139/84 Pulse Oximetry 96 Oxygen Delivery Me thod Room Air Oxygen Flow Rate Fraction of Inspir ed Oxygen Hydration adequate: Yes Mental status: Baseline
[2021-03-25 12:09] LABS: Carcinoembryonic Antigen 8.2 ng/mL (0.0-4.7)
[2021-03-26 06:01] LABS: H. Pylori / CLO Test Negative
[2021-04-01 10:36] LABS: Miscellaneous Test See Scanned Lab Rpt
== END 2021-03-25 12:09 | disposition home or self-care (01) ==
PROVIDERS: PCP Nurse Practitioner; Visit Provider Surgery
PROC: 0DJ08ZZ Inspection of Upper Intestinal Tract, Via Natural or Artificial Opening Endoscopic (ICD-10-PCS; CPT 43235; principal; 2021-03-25 10:15)
PROC: 0DJD8ZZ Inspection of Lower Intestinal Tract, Via Natural or Artificial Opening Endoscopic (ICD-10-PCS; CPT 45378; 2021-03-25 10:15)
DX: D50.9 Iron deficiency anemia, unspecified (principal); Z91.81 History of falling; K57.30 Diverticulosis of large intestine without perforation or abscess without bleeding; K44.9 Diaphragmatic hernia without obstruction or gangrene; K21.00 Gastro-esophageal reflux disease with esophagitis, without bleeding; K29.70 Gastritis, unspecified, without bleeding; I10 Essential (primary) hypertension; F03.90 Unspecified dementia, unspecified severity, without behavioral disturbance, psychotic disturbance, mood disturbance, and anxiety; C18.0 Malignant neoplasm of cecum
CPT/HCPCS: 36415; 43239; 45380; 82378; 87077; 88305; 88341; 88342; 96360; 96361; J2704; J7030

== ENCOUNTER → 2021-04-02 10:34 | Outpatient (BNVA) | payer MEDICARE, OTHER, SELFPAY | PROVIDERS: PCP Nurse Practitioner; Visit Provider Surgery | DX: Z11.52 Encounter for screening for COVID-19 (principal); Z20.822 Contact with and (suspected) exposure to COVID-19 | CPT/HCPCS: 87635 ==

== ENCOUNTER 2021-04-07 15:42 | Inpatient (IN) | payer MEDICARE, OTHER, SELFPAY ==
[2021-04-03 12:01] VITALS: BMI 28.3
[2021-04-07] VITALS (18 sets, daily range): BP systolic 135–159; BP diastolic 79–94; PULSE 92–107; RESP 12–18; TEMP 36.3–37; O2SAT 91–100
[2021-04-07] MEDS: sodium chloride 0.9% 1,000 ML 30 ML IV (10:10)
[2021-04-07] MEDS: acetaminophen 1,000 MG/100 ML PIGGYBACK 400 MG IV (10:10)
[2021-04-07 10:21] LABS: Basophils # 0.1 10^3/uL (0.0-0.1); Basophils % 0.9 %; Eosinophils # 0.2 10^3/uL (0.0-0.8); Eosinophils % 2.8 %; Hematocrit 31.3 % (37.0-47.0); Hemoglobin 9.2 g/dL (11.5-15.3); Lymphocytes # 1.7 10^3/uL (0.8-4.8); Lymphocytes % 25.8 %; Mean Corpuscular HGB Conc 29.4 g/dL (30.0-36.0); Mean Corpuscular Hemoglobin 21.3 pg (28.0-34.0); Mean Corpuscular Volume 72.6 fl (81-99); Mean Platelet Volume 9.6 fL (7.4-10.4); Monocytes # 0.5 10^3/uL (0.2-0.9); Monocytes % 8.5 %; Neutrophils # 3.94 10^3/uL (1.8-7.7); Neutrophils % 61.7 %; Nucleated Red Blood Cells % 0 %; Platelet Count 669 10^3/cmm (130-400); Red Blood Count 4.31 10^6/uL (4.1-5.3); Red Cell Distribution Width 20.9 % (12.1-15.1); White Blood Count 6.4 10^3/uL (4.0-10.0)
--- NOTE | 2021-04-07 10:21 | P.ANESASSM_ITS ---
Pre-Anesthetic Assessment Pre-Anesthetic Assessment: Height/Weight: Height 1.65 m Weight 77.111 kg Preop Diagnosis: Colon cancer Proposed Procedure: Operation Date: 04/07/21 11:40 Proposed Procedures p Laparoscopic poss Open Right Hemicolectomy 42789 K63.89(Right) - Victor Hugo Judge MD Familial anesthetic complications: None Was Beta Sue taken within 24 hours: N/A Was Clonidine taken within 24 hours: N/A Last intake: Intake Last Liquid Date 04/06/21 Last Liquid Time 18:00 Last Solid Date 04/06/21 Last Solid Time 18:00 Social: Social History: No alcohol and No tobacco Exam: Pre-Anes Outpt Exam: alert, oriented x 3, clear to auscultation bilaterally and regular rate & rhythm Airway: Cervical ROM: WNL MP: 2 Dentition: Chipped CV/HEM: CV/HEM: Anemia and HTN GI: GI: GERD Metabolic: Comments: kelsey D and B12 deficiency Neuropsych: Comments: frontal lobe deficit Anesthetic Plan: ASA status: 3 Anesthesia: General Risk of > 500 ml blood loss (7ml/kg in children): No PFSH Anesthesia PFSH: Medical History Acquired spondylolisthesis Allergic reaction to insect sting Wasp Breast tumor Cervical disc disease Chronic constipation Chronic right shoulder pain Chronic seasonal allergic rhinitis due to pollen Degeneration of lumbar or lumbosacral intervertebral disc Essential hypertension Frontal lobe deficit Hypertriglyceridemia Lives in assisted living facility Vitamin B 12 deficiency Vitamin D deficiency Surgical History H/O arthroscopic knee surgery History of appendectomy History of arthroscopic surgery of shoulder History of carpal tunnel surgery of left wrist History of cholecystectomy History of left breast biopsy Negative biopsy Family History Other Alcohol abuse Allergies Arthritis Cervical disc disease Heart disease Social History Alcohol intake: never Adopted: No Caregiver/support person: Yes Lives independently: No Household members: caregiver Housing: Assisted Living Facility Marital status: / Number of children: 3 Current occupational status: retired Current gender identity: Female Renetta/Anglican: Lutheran [employer] Data Anesthesia CBC & Chem 7: 04/07/21 10:10 Cardiac Studies: No Data to Display
[2021-04-07] MEDS: heparin 5,000 unit/mL INJ 1 mL 3000 UNIT SUBCUT (10:31)
--- NOTE | 2021-04-07 12:13 | W.PM.OPSUD ---
Surgery/Procedure H&P Update DATE OF PROCEDURE: April 07, 2021 DATE H&P PERFORMED: 04/02/21 H&P UPDATE INFORMATION: I have reviewed H&P completed within last 30 days, I have examined patient prior to procedure and No changes to prior documentation PREOP DIAGNOSIS: Colon cancer PRIMARY INDICATION FOR PROCEDURE: The same PLANNED PROCEDURE: Operation Date: 04/07/21 11:40 Proposed Procedures p Laparoscopic poss Open Right Hemicolectomy 68699 K63.89(Right) - Victor Hugo Judge MD
[2021-04-07] MEDS: ceFOXitin 2,000 MG in sodium chloride 0.9% (plus) 50 ML 100 MG IV ×2 (12:59→20:51)
--- NOTE | 2021-04-07 13:49 | SUR.OPER ---
Daughter called and notified of surgical start and progress.
--- NOTE | 2021-04-07 14:49 | SUR.OPER ---
Called daughter, obtained permission to remove right ovarian cyst.
--- NOTE | 2021-04-07 15:28 | PM.OP ---
Operative Report Date of procedure: April 07, 2021 Pre-op Diagnosis: Colon cancer Post-op diagnosis: other (Mid ascending colon mass and incidental finding of right ovarian cyst) Procedure Done: 1-Laparoscopic right hemicolectomy with [id number] ileocolic anastomosis 2-Incidental right ovarian cystectomy Implants: Piece of Surgicel onto the ileocolic anastomosis for minimal oozing Specimens removed/disposition: 1-Right hemicolectomy sutures marked distal 2-Staple line 3-Incidental right ovarian cystectomy Surgeon: Victor Hugo Judge Instrument Calibrator: Surgical technazario Rivero/certified ophthalmic surgical assistant student Pat Gilman [facility] nurse Alma Rosa and Stephanie Aburto Anesthesia: General (ROLAND Strickland and Dr. Weinstein) Estimated blood loss (mL): 20 IV fluids (mL): 1,200 IV fluids: Patient received a liter of crystalloid in the preop area. Urine output (mL): 400 Condition: stable Disposition: floor Brief History: Right colon cancer Procedure: Patient was identified in the holding area,then was was taken to the operating room and placed in a supine position under general anesthesia Time-out was done verifying the patient's name/date of /planned procedure and destination after the procedure, all were in agreement. SCDs confirmed to be functioning, preoperative antibiotics administered per protocol, and beta petros protocol was confirmed. Heparin subcutaneous was given as prophylactic prior to surgery A Fiore catheter was placed and the abdomen was prepped and draped in a sterile manner. Revealing clear urine. A 2 cm midline supraumbilical incision was made and using open Valdes trocar technique was placed and 15 mm of pneumoperitoneum was created. 10 mm 0 degree scope was introduced was no evidence of bleeding or injury. The scope was then switched to a 10 mm 30? scope A 5 mm port was placed in the left lower quadrant and another 5 mm port was placed in the left upper quadrant and in the suprapubic area under direct visualization. The patient was placed in Trendelenburg position and steep tilt to the left placing the small bowel in the left side within the peritoneal cavity and the transverse colon was retracted superiorly. There was some adhesions at the upper abdomen that were taken down by LigaSure device. Under direct visualization. Noticed that the patient have a large puckering mass of the proximal ascending colon encroaching on the mid ascending colon with mesenteric lymphadenopathy. The cecum was retracted laterally and the tenting of the ileocolic pedicle was noted. The peritoneum overlying the pedicle was opened and a window created posterior to the pedicle just lateral to the third portion of the duodenum. Dissection was carried superiorly lateral to the duodenum along the avascular plane. Using LigaSure device I skeletonized the ileocolic pedicle. A 45 mm [place] white load was applied and the pedicle was divided. Additional 5 mm clips were applied. the avascular plane was dissected laterally towards the right paracolic gutter and superiorly towards the hepatic flexure.The transverse mesocolon was divided using LigaSure device and this was continued medially. The anterior leaflet of the greater omentum was divided near the midpoint of the transverse colon to enter the lesser sac. The greater omentum was divided using LigaSure and the hepatic flexure was taken down. The dissection was carried along the line of Toldt until the ascending colon and down to ileum to completely free it up. There were some adhesions towards the terminal ileum down as well. The mesentery of the terminal ileum was divided using LigaSure device. Noticed that the mesenteric fat was so bulky thick of the right side of the colon At this point the pneumoperitoneum was released and the mobilized colon and small bowel was exteriorized through the supraumbilical incision which had been extended and a wound protector had been placed. Application of 75 mm blue load onto the terminal ileum and division well as on the proximal part of transverse colon with safety margin away from the tumor ,specimen was now passed to the circulating nurse. In the form of right hemicolectomy and sutures marked distal. Interrupted 3-0 silk suture were placed to approximate the ileum to the transverse colon and enterotomies were created on the transverse colon and small bowel and and 75 mm blue load GEORGIE stapler was introduced and fired creating a [id number] stapled anastomosis patent tension-free. There was bleeding noted from the staple line and enterotomies were grasped and additional 75 mm blue load linear stapler was done to close both enterotomies and the staple line passed to the circulating nurse. Interrupted seromuscular. 3-0 silk sutures were placed on the edges and the intersection of the staple line. And the mesenteric defect was closed.The bowel was reintroduced into the peritoneal cavity. At this point the GelPort was placed to have adequate sealing, pneumoperitoneum was introduced final look laparoscopy was done and irrigation followed by suction was achieved. Bilateral TAP (transversus abdominous plain peripheral nerve block )block using Exparel 20 mL Exparel 40 ml Normal saline 20 ml bupivacaine 0.25% 30 mL on each side injected 20 mL injected the port sites Noticed to have an incidental finding of right ovarian cyst more than 4 cm in diameter I elected at this point to using LigaSure device to dissected and an Endoloop PDS was applied for control of the pedicle. The cyst was then delivered in an Endo Catch bag and passed to the circulating, intraoperative permission was taken from patient's daughter with this current finding and she agreed to proceed with incidental ovarian cystectomy. All ports were removed and there was no bleeding noted from the port sites. The midline fascia closed using PDS suture followed by thorough irrigation then skin tavo used to close the skin incision and all other trocar sites were closed by skin tavo as well. The patient is transferred to the recovery room after extubated in stable condition with a Fiore catheter. Count was completed at the end of the procedure. I Was present for the whole entire procedure
--- NOTE | 2021-04-07 15:58 | SUR.PHASEI ---
PT SLEEPS IF NOT DISTURBED PT AWAKES TO VOICE, KNOWS NAME, SHAKES HEAD NO TO PAIN OR COLD QUESTIONS, PT QUICKLY BACK TO SLEEP RA TRIAL PT DOWN TO 92% PT PLACED ON 3LNC QUICKLY UP TO 96% RESP EVEN AND UNLABORED NO DISTRESS NOTED ABD LARGE SOFT WITH 3 SITES D/I TYLER TO DD YELLOW URINE NOTED TO TUBING AND BAG.
[2021-04-07 17:38] LABS: Glucose Point of Care 137 mg/dL (70-110)
[2021-04-07] MEDS: famotidine 20 mg/2 mL INJ IVP (17:48)
[2021-04-07] MEDS: lactated ringers 1,000 ML 75 ML IV (17:48)
--- NOTE | 2021-04-07 18:52 | PC.NURSE ---
i reported low temp 97.5 to nurse
--- NOTE | 2021-04-07 23:39 | PC.NURSE ---
i reported high pulse 102 to nurse
[2021-04-08] VITALS (9 sets, daily range): BP systolic 116–146; BP diastolic 64–80; PULSE 94–105; RESP 14–18; TEMP 36.7–37.1; O2SAT 92–96
[2021-04-08] MEDS: famotidine 20 mg/2 mL INJ IVP ×2 (06:05→16:27)
[2021-04-08] MEDS: ceFOXitin 2,000 MG in sodium chloride 0.9% (plus) 50 ML 100 MG IV (06:05)
[2021-04-08] MEDS: heparin 5,000 unit/mL INJ 1 mL 5000 UNIT SUBCUT (06:06)
--- NOTE | 2021-04-08 06:06 | PM.PN ---
Subjective Subjective: Interval history: Patient overall seems to be doing well, drift in H&H. Medications: Reviewed: Yes Vitals/I&O/Wt Last Vital Signs Temp 98.2 F 04/08/21 03:31 Pulse 105 H 04/08/21 03:31 Resp 14 04/08/21 03:31 BP 133/77 04/08/21 03:31 Pulse Ox 96 04/08/21 03:31 04/07/21 04/07/21 04/08/21 14:59 22:59 06:59 Intake Total 1150 / 1150 350 / 1500 Output Total 820 / 820 Balance 1150 / 1150 -470 / 680 Physical Exam Narrative: EXAM NARRATIVE: Patient is conscious alert no apparent distress BMI 28 Head and neck examination PERRLA no masses no cervical lymphadenopathy no jaundice Cardiac examination audible S1-S2 no murmurs no gallops no arrhythmias Chest is clear bilateral,abscence of Rhonchi or wheezes,no surgical emphysema Abdomen nontender except at the incision site nondistended soft no organomegaly guarding or rigidity/no signs of peritonitis Fiore catheter in place with clear urine Urinary Catheter Management^: Fiore: Cath Placed During This Visit: yes Reason for Continuing Indwelling Catheter: Perioperative Use in Selected Surgeries Urinary Catheter Date of Insertion: 04/07/21 Urinary Catheter Time of Insertion: 13:48 Data : 04/08/21 06:58 04/08/21 06:58 A&P Assessment and plan (1) Status post right hemicolectomy: 75 years old female patient status post laparoscopic right hemicolectomy and incidental right ovarian cystectomy. 04/07/2021 Plan Continue n.p.o. status We will hold heparin subcu due to drop in H&H and continue SCDs Awaiting bowel function Continue IV antibiotics Continue Fiore catheter to monitor urine output closely Assurance and education All questions have been answered and all concerns have been addressed to patient's satisfaction. Status: Acute Attestations Medical Necessity Statement*: Continue inpatient hospitalization for perioperative care. Awaiting bowel function Time Spent in Patient Care: (>than 50% of time spent in counselling and/or direct pt care on unit). Coding Level of Care Code Acute Computer Networking Instructor for Chg Fwd Diagnoses Status post right hemicolectomy Z90.49
[2021-04-08 07:39] LABS: Hematocrit 26.5 % (37.0-47.0); Hemoglobin 7.7 g/dL (11.5-15.3)
[2021-04-08 07:49] LABS: Anion Gap 14.7 (5-19); Blood Urea Nitrogen 13 mg/dL (8-23); Calcium 8.3 mg/dL (8.5-10.5); Carbon Dioxide 21 mmol/L (22-29); Chloride 108 mmol/L (98-107); Glucose 128 mg/dL (65-115); Osmolality Calculated 290 mOsm/kg (285-295); Potassium 4.7 mmol/L (3.5-5.1); Sodium 139 mmol/L (136-145)
--- NOTE | 2021-04-08 09:04 | PC.NURSE ---
notified Dr Judge that patient's Hgb is 7.7 this morning.
[2021-04-08] MEDS: lactated ringers 1,000 ML 75 ML IV ×2 (09:10→23:18)
[2021-04-08] MEDS: morphine 4 mg/mL SDV 1 mL 1 MG IVP (09:26)
--- NOTE | 2021-04-08 09:43 | PC.NURSE ---
Per Dr Judge, will repeat Hgb tomorrow and heparin held.
--- NOTE | 2021-04-08 10:02 | PC.CHAP ---
Pastoral Care Encounter/Spiritual Assessment Type of Contact [] Declined wood cabinet finisher visit [] Patient/Family/Request visit [] Outpatient visit [] Follow-up visit [] Physician referral [] Code/Alert [x] Routine visit [] Staff referral [] Actively dying [] Patient sleeping [] Family support [] [] Out of room [] Palliative care [] [] Receiving care in room [] Pre-surgical visit [] Trauma [] Long length of stay [] ICU visit [] Other: Relational/Emotional Strength [x] Patient feels connected with others/family/visitors/staff [] Distress [] Loneliness/isolation [] Abandonment Spirituality of Patient [x] Person of Renetta [x] Attends Cheondoism of their Renetta [x] Believes in Prayer [] Reads Bible or Adventist materials [] There are Spiritual issues to be addressed Respiratory Support Technician Interventions x[] Prayer [x] Active listening [x] Non-anxious presence [] Spiritual/emotional support [] Crisis/trauma care [] Spiritual counseling [] Bereavement support [] Provided bereavement packet [] Provided Bible/devotional materials [] Provided toy/stuffed animal, coloring book to patient or family member [] Provided Communion [] Anointing/[place] [] Salvation [x] Completed spiritual assessment [] Other: Impact on Illness or Injury [] Angry [] Fearful [] Anxious [] Often cries [] Exhaustion [] Unable to work [] Unable to attend jehovah's witness [] Unable to walk/stand [] Unable to read [] Unable to drive [] Unable to eat/drink [] Unable to sleep [] Unable to be with family [] Patient intubated [] Other: Summary Time spent with patient 15 min
[2021-04-09] VITALS (7 sets, daily range): BP systolic 126–156; BP diastolic 70–80; PULSE 88–102; RESP 15–20; TEMP 36.8–37.7; O2SAT 91–100
[2021-04-09] MEDS: famotidine 20 mg/2 mL INJ IVP ×2 (04:34→17:39)
[2021-04-09 06:11] LABS: Hematocrit 25.1 % (37.0-47.0); Hemoglobin 7.4 g/dL (11.5-15.3)
--- NOTE | 2021-04-09 06:15 | P.PN_ITS ---
Subjective Subjective: Interval history: Patient seems to be overall doing well. Adequate urine output and no acute events overnight. Patient was able to void without need for reinsertion of the Fiore catheter. Patient got accepted at [facility]. And passing gas. Stable H&H. Medications: Reviewed: Yes Vitals/I&O/Wt Last Vital Signs Temp 98.5 F 04/09/21 04:56 Pulse 91 04/09/21 04:56 Resp 17 04/09/21 04:56 BP 126/75 04/09/21 04:56 Pulse Ox 92 04/09/21 04:56 04/08/21 04/08/21 04/09/21 14:59 22:59 06:59 Intake Total 1050 / 1050 1000 / 2050 Output Total 700 / 700 1100 / 1800 Balance 1050 / 1050 300 / 1350 -1100 / 250 Physical Exam Narrative: EXAM NARRATIVE: Patient is conscious alert no apparent distress BMI 28 Head and neck examination PERRLA no masses no cervical lymphadenopathy no jaundice Abdomen nontender except at the incision site nondistended soft no organomegaly guarding or rigidity/no signs of peritonitis, bowel sounds are positive. skin incisions are clean dry and intact with skin tavo in place. Urinary Catheter Management^: Fiore: Cath Placed During This Visit: yes Reason for Continuing Indwelling Catheter: Perioperative Use in Selected Surgeries Urinary Catheter Date of Insertion: 04/07/21 Urinary Catheter Time of Insertion: 13:48 Data : 04/10/21 06:35 04/10/21 06:35 A&P Assessment and plan (1) Status post right hemicolectomy: Assessment 75 years old female patient status post laparoscopic right hemicolectomy and incidental right ovarian cystectomy. 04/07/2021 Plan of surgical care Start the patient on clear liquid diet and protein shakes If patient continues to do well we will plan to [facility] the [facility] [place] IV fluids Assurance and education All questions have been answered and all concerns have been addressed to patient's satisfaction. Status: Acute Attestations Medical Necessity Statement*: Continue inpatient hospitalization for perioperative care. With the plan to discharge to prison facility today once patient tolerates p.o. intake. Time Spent in Patient Care: (>than 50% of time spent in counselling and/or direct pt care on unit) . Coding Level of Care Code Acute Fire Boat Engineer for Chg Fwd Diagnoses Status post right hemicolectomy Z90.49
--- NOTE | 2021-04-09 06:26 | PC.NURSE ---
Per order from Dr. Rust this nurse D/C patients emery catheter, pt tolerated well and.
[2021-04-09 06:34] LABS: Blood Urea Nitrogen 10 mg/dL (8-23); Calcium 8.2 mg/dL (8.5-10.5); Carbon Dioxide 24 mmol/L (22-29); Chloride 104 mmol/L (98-107); Glucose 102 mg/dL (65-115); Osmolality Calculated 283 mOsm/kg (285-295); Sodium 137 mmol/L (136-145)
[2021-04-09] MEDS: D5-NS 0.45% + KCL 20 mEq 20 MEQ/1,000 ML BAG 75 MEQ IV (06:34)
--- NOTE | 2021-04-09 20:37 | PC.NURSE ---
This nurse was helping FEEDER CATCHER TOBACCO change the patient at approx 1930 when the patient was heard passing gas, this nurse will report this to the physician.
[2021-04-10] VITALS: BP 160/82; PULSE 96; RESP 20; TEMP 37.1; O2SAT 96
[2021-04-10] MEDS: D5-NS 0.45% + KCL 20 mEq 20 MEQ/1,000 ML BAG 75 MEQ IV (01:14)
[2021-04-10 03:23] VITALS: BP 173/91; PULSE 63; RESP 16; TEMP 37.3; O2SAT 97
[2021-04-10] MEDS: famotidine 20 mg/2 mL INJ IVP (04:35)
[2021-04-10 06:48] LABS: Hematocrit 26.8 % (37.0-47.0); Hemoglobin 8.1 g/dL (11.5-15.3)
[2021-04-10 07:02] LABS: Anion Gap 14.2 (5-19); Blood Urea Nitrogen 9 mg/dL (8-23); Calcium 8.5 mg/dL (8.5-10.5); Carbon Dioxide 25 mmol/L (22-29); Chloride 100 mmol/L (98-107); Glucose 111 mg/dL (65-115); Osmolality Calculated 279 mOsm/kg (285-295); Potassium 4.2 mmol/L (3.5-5.1); Sodium 135 mmol/L (136-145)
[2021-04-10 08:00] VITALS: BP 148/75; PULSE 113; RESP 18; TEMP 36.9; O2SAT 98
--- NOTE | 2021-04-10 10:45 | PM.DCS ---
Discharge Providers Date of Admission: 04/07/21 15:42 Date of Discharge: April 10, 2021 Attending Provider at Admission: Victor Hugo Judge MD Attending Provider at Discharge: Victor Hugo Judge MD Primary Care Provider: SUN Mayo Diagnoses at Discharge Discharge Diagnosis (1) Status post right hemicolectomy: Status: Chronic Reason for Visit Reason for Visit: [facility] Hospital Course Hospital Course This is a pleasant 75 years old female patient was found to have right-sided colon mass and was proved to be moderately differentiated invasive adenocarcinoma. Patient undergone a colonoscopy and specimen was obtained that showed the above findings. Subsequently the patient undergone laparoscopic right hemicolectomy with ileocolic anastomosis. Overall did well with regard to postoperative course as she continued to have stable vital signs and adequate urine output. Fiore catheter was taken out and patient was able to void urine although there is a component of incontinence as she is bed attached yet ambulate some with the assistance of physical therapy up to 50 feet. Patient started to pass gas and was placed on clear liquid diet and protein shakes and she seems to be tolerating this well appropriately. There was some shift in H&H but did not require blood transfusion and heparin subcu was held. Patient currently have a stable hemoglobin of 8.1 and otherwise unremarkable basic metabolic panel. Patient seems to be appropriate and safe to be discharged to detention based on physical therapy evaluation and mattress spring encaser has been working on the case as well and patient got accepted at [facility]. Physical Exam Narrative: EXAM NARRATIVE: Patient is conscious alert no apparent distress BMI 28 Head and neck examination PERRLA no masses no cervical lymphadenopathy no jaundice Abdomen nontender except at the incision site nondistended soft no organomegaly guarding or rigidity/no signs of peritonitis, bowel sounds are positive. skin incisions are clean dry and intact with skin tavo in place. Urinary Catheter Management^: Fiore: Cath Placed During This Visit: yes, but has since been removed by the nurse Reason for Continuing Indwelling Catheter: Perioperative Use in Selected Surgeries Urinary Catheter Date of Insertion: 04/07/21 Urinary Catheter Time of Insertion: 13:48 Date Urinary Catheter Removed: 04/09/21 Time Urinary Catheter Discontinued: 06:23 Discharge Data Data Completed and Pending: Pending at discharge Category Date Time Status Pathology: Surgic al [PTH] Routine Pth 04/07/21 15:18 Received Labs from last 24 hours 04/10/21 04/10/21 06:35 06:35 Hgb 8.1 L Hct 26.8 L Sodium 135 L Potassium 4.2 Chloride 100 Carbon Dioxide 25 Anion Gap 14.2 BUN 9 Creatinine 0.7 GFR Calculation Not Reportable Glucose 111 Calculated Osmolal ity 279 L Calcium 8.5 Vitals: Last Vital Signs Temp 98.5 F 04/10/21 08:00 Pulse 113 H 04/10/21 08:00 Resp 18 04/10/21 08:00 BP 148/75 04/10/21 08:00 Pulse Ox 98 04/10/21 08:00 Discharge Plan Discharge Patient Disposition: Home Condition: Stable Prescriptions: New hydrocodone-acetaminophen 5-325 mg tablet 1 tab PO Q6H PRN (Reason: pain) Qty: 20 RF: 0 Continued cetirizine 10 mg tablet 5 mg PO DAILY RF: 0 epinephrine [EpiPen] 0.3 mg/0.3 mL auto-injector 0.3 mg IM ONCE PRN (Reason: Anaphylaxis) RF: 0 lisinopril 20 mg tablet 20 mg PO DAILY Qty: 90 RF: 0 donepezil 5 mg tablet 5 mg PO DAILY Qty: 90 RF: 0 docusate sodium [Colace] 100 mg capsule 100 mg PO DAILY Qty: 90 RF: 0 memantine [Namenda] 10 mg tablet 10 mg PO BID Qty: 180 RF: 0 mirtazapine 15 mg tablet 15 mg PO .at bedtime Qty: 90 RF: 0 omeprazole 20 mg capsule,delayed release(DR/EC) 20 mg PO DAILY Qty: 90 RF: 0 diclofenac sodium [Voltaren] 1 % gel 4 g TOPICAL QID PRN (Reason: pain) 30 Days Qty: 100 RF: 1 oxycodone-acetaminophen [Endocet] 5-325 mg tablet 1 tab PO .HS RF: 0 Discontinued polyethylene glycol 3350 [Miralax] 17 gram/dose powder 17 g PO DAILY Qty: 1530 RF: 0 erythromycin 500 mg tablet 500 mg PO TID 1 Days Qty: 3 RF: 0 Discharge Orders: Discharge Order (Routine); Ordered 04/10/21 Ordered By: Victor Hugo Judge Referrals: [facility] [Outside] Victor Hugo Judge MD [Physician] - 04/16/21 1:15 pm (Return to surgery office in 1 week) Discharge Diet: As Directed Discharge Activity: Limit activity as instructed Patient Instructions: Opioid Safety Activity Restrictions/Additional Instructions: 1. Patient can shower after 48 hours from surgery 2. Leave incisions open to air 3. Up and walking as tolerated with assistance .please see physical therapy recommendation 4. Do not lift more than 5 pounds first 2 weeks after surgery and not more than 25 pounds 6 to 8 weeks after surgery. 5. Do not operate heavy machinery or drive while using pain medications. 6.Contact the office or return to the ER for worsening nausea vomiting fevers or chills, or noticing any redness around incision sites or discharge. Additional instructions with regard to the diet postoperatively: Patient can be advanced to full liquid diet slowly for the coming 2 days and if she tolerates that well she can be advanced to soft GI diet. We will follow on pathology report. Discharge Attestations Time Spent in Discharge Care*: greater than 30 min Specific Discharge Activities: educating patient and educating and/or supporting family/caregiver Status at Discharge: Cognitive status at discharge: mildly impaired cognition, Behavioral status at discharge: cooperative, Functional status at discharge: uses cane/walker Overall status at discharge: patient is progressing back to baseline Quality Metrics Clinical Quality Measures During this hospital stay, did patient experience: None Coding Level of Care Code Acute [facility] MADIE OVIEDO note Diagnoses Status post right hemicolectomy Z90.49
[2021-04-10 11:35] VITALS: BP 135/83; PULSE 82; RESP 17; TEMP 37.4; O2SAT 91
--- NOTE | 2021-04-10 13:23 | PC.SOCIAL ---
IMM Update pg 2 of IMM updated and reviewed w/ patient. Copy provided.
[2021-04-10 13:55] LABS: SARS Covid-2 Antigen Negative (Negative)
== END 2021-04-10 14:25 | disposition skilled nursing facility (03) | DRG 331 ==
LOC: MEDSURG 16:42
PROVIDERS: Anesthesiology; Admitting Provider Surgery; PCP Nurse Practitioner; Visit Provider Surgery
PROC: 0DTF4ZZ Resection of Right Large Intestine, Percutaneous Endoscopic Approach (ICD-10-PCS; CPT 44205; principal; 2021-04-07 11:40)
DX: C18.2 Malignant neoplasm of ascending colon (principal); N83.201 Unspecified ovarian cyst, right side; K21.9 Gastro-esophageal reflux disease without esophagitis; K44.9 Diaphragmatic hernia without obstruction or gangrene; M53.87 Other specified dorsopathies, lumbosacral region; D63.0 Anemia in neoplastic disease; K59.09 Other constipation; I10 Essential (primary) hypertension; R41.844 Frontal lobe and executive function deficit; E78.1 Pure hyperglyceridemia; E55.9 Vitamin D deficiency, unspecified; E53.8 Deficiency of other specified B group vitamins; R32 Unspecified urinary incontinence
CPT/HCPCS: 36415; 36416; 51702; 80048; 82962; 85014; 85018; 85025; 87426; 88305; 88309; 96365; 96372; 97116; 97162; 97530; C9290; J0610; J0694; J1100; J1170; J1644; J2270; J2405; J2704; J2710; J3010; J3490; J7030

== ENCOUNTER 2021-05-13 14:35 | Outpatient (CLI) | payer MEDICARE, OTHER, SELFPAY ==
[2021-05-13 16:34] LABS: Hematocrit 29.2 % (37.0-47.0); Hemoglobin 8.2 g/dL (11.5-15.3); Mean Corpuscular HGB Conc 28.1 g/dL (30.0-36.0); Mean Corpuscular Hemoglobin 19.4 pg (28.0-34.0); Mean Platelet Volume 9.8 fL (7.4-10.4); Platelet Count 549 10^3/cmm (130-400); Red Blood Count 4.23 10^6/uL (4.1-5.3); Red Cell Distribution Width 19.3 % (12.1-15.1); White Blood Count 5.4 10^3/uL (4.0-10.0)
--- NOTE | 2021-05-13 16:49 | XR_ITS ---
WS: [id number] Exam: XR hip BI 3-4V wo/w pel [id number] Date/Time of Exam: 05/13/2021 5:04 PM Reason For Exam: M25.50 - Pain in unspecified joint Minimal degenerative change of both hips. No fracture or dislocation. Osteopenia. Unremarkable bilate ral soft tissues. The pelvis is intact. Mild DJD of the SI joints. Neurostimulator pack is seen over the left pelvis. Surgical clips in the right pelvis. XR/XR hip BI 3-4V wo/w pel [id number] IMPRESSION: 1. Mild bilateral hip DJD. No fracture or dislocation. 2. Osteopenia. 3. The pelvis is intact.
--- NOTE | 2021-05-13 16:49 | XR_ITS ---
WS: [id number] Exam: XR lumbar spine 2-3V* [id number] Date/Time of Exam: 05/13/2021 5:04 PM Reason For Exam: M25.50 - Pain in unspecified joint No acute fracture or dislocation. Degenerative disc changes at the all levels. Spondylosis. Osteopeni a. Facet arthropathy at all levels. Moderate levoscoliosis. XR/XR lumbar spine 2-3V* [id number] IMPRESSION: 1. No acute fracture or malalignment. 2. Advanced degenerative changes, osteopenia and scoliosis
--- NOTE | 2021-05-13 16:49 | XR_ITS ---
WS: [id number] Exam: XR thoracic spine 3V* [id number] Date/Time of Exam: 05/13/2021 5:04 PM Reason For Exam: M25.50 - Pain in unspecified joint No acute fracture or dislocation. Dextroscoliosis of the lower T-spine. Osteopenia and mild spondylos is. Neurostimulator electrodes are seen in the mid thoracic spinal canal. Paraspinal soft tissues are unremarkable. Degenerative disc changes of the lower T-spine. XR/XR thoracic spine 3V* [id number] IMPRESSION: 1. Degenerative changes and osteopenia. No fracture or malalignment. 2. Lower thoracic dextroscoliosis.
--- NOTE | 2021-05-13 16:55 | ONC CON_ITS ---
Dr. Pérez New Patient Note Patient: Brenda De León Unit #: [id number]: [id number] Dicatated By: Mio Pérez M.D.Date of Visit: May 13, 2021 Onc MED New Patient/Consult Referring Physician: Dr. CHAPARRO GILL M.D. History of Present Illness: Ms. Brenda De León, is a 75-year-old female with history of anemia, requiring blood transfusion and history of repeated fall underwent EGD/colonoscopy on April 02, 2021 which showed at the ileocecal valve, and abnormality was noted. Presence of malignant-looking growth partially occluding the ileocecal junction and colonoscopy could not passed beyond that biopsy was obtained which confirmed adenocarcinoma subsequently on April 08, 2021 she underwent laparoscopic right hemicolectomy and final pathology report confirmed moderately differentiated, 7.7 cm tumor invades muscularis propria into pericolorectal tissue. No macroscopic tumor perforation seen. Lymphovascular invasion seen in large vessel, intramural. All margins were clear. 2 out of 16 lymph node positive for metastatic disease. pT3 pN1b CT scan of abdomen done on February 13, 2021 showed there to low-attenuation lesions in the right lobe of liver. Very nonspecific and too small to characterize but cannot exclude metastatic disease, cysts or hemangiomas Patient lives in assisted living, as per family has mild to moderate dementia and as per her granddaughter Jaiden who is a nurse at hospital in [facility], patient has expressed categorically no chemotherapy. Patient denies smoking alcohol use, denies any abdominal pain, denies any jaundice denies any hemoptysis hematemesis but history of melena and sometimes bleeding per rectum but she has history of hemorrhoids. And still complaining of fall off and on and 1 recently because discomfort/pain in the lower back for which she is being evaluated by PMD Past Medical History: Ms. De León's medical history consists of breast tumor, cervical disc disease, chronic constipation, chronic right shoulder pain, degenerative disease of the spine, frontal lobe deficit, hypertension, hypertriglyceridemia, sponylolisthesis, vitamin B12 deficiency, and vitamin D deficiency. Past Surgical History: Ms. Links surgical/procedural history consists of appendectomy, arthroscopic knee surgery, breast biopsy, cholecystectomy, and left carpal tunnel release. Medications: Cetirizine HCl 1 Tablet (of 5 mg) Oral daily, Diclofenac Sodium 4 (1 %) Gel (jelly) Topical daily for 30 days PRN, Docusate Sodium 1 Capsule (of 100 mg) Oral daily, Donepezil HCl 1 Tablet (of 5 mg) Oral daily, EPINEPHrine Injection PRN, Lisinopril 1 Tablet (of 20 mg) Oral daily, Memantine HCl 1 Tablet (of 10 mg) Oral b.i.d., Mirtazapine 1 Tablet (of 15 mg) Oral at bedtime, Omeprazole 1 Capsule (of 20 mg) Capsule Delayed Release Oral daily, oxyCODONE-Acetaminophen 1 Tablet (of 5-325 mg) Oral at bedtime, Polyethylene Glycol 3350 (17 g) Powder daily Allergies: Codeine Sulfate, Cortisone Acetate, Naproxen, and Wasp stings. Social History: Ms. De León is and she is retired. Ms. De León has never smoked. She has no history of drinking. Ms. De León reports the following support systems: lives in an assisted living environment. Family History: There is no documented family history. Review Of Symptoms: Review of Systems is not available for this patient. Vital Signs: Performed on May 13, 2021 15:28: 10, 5, 0.00, 0.00 sq.m, 65 in, 98 %, 94 /min, 18 /min, 131/79 mm(hg), and 97.4 F (LOW). Performance Status: 1 - No physically strenuous activity, but ambulatory and able to carry out light or sedentary work (e.g. office work, light house work). (ECOG) Physical Examination: ENMT - No mouth sores, no thrush, no jaundice, Respiratory - Lungs are clear to auscultation, Cardiovascular - Regular rate and rhythm of heart, Abdomen - Soft, bowel sounds present, Extremities - No visible edema. Lab/Imaging: Most recent lab results are not available for this patient. 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 Dementia Iron deficiency anemia status post transfusion. Plan: Discussed with patient and her granddaughter regarding her disease status, as per pathology report she has stage III colon cancer but concern is liver lesion seen on CT scan of abdomen which could be metastatic disease, at this point, we will consider CT PET scan and also obtain CEA level if it confirm metastatic disease, then will change the treatment plan otherwise will discuss with her regarding role of adjuvant chemotherapy, knowing that patient is reluctant to consider any form of chemotherapy but patient agreed to discuss about chemo as long as is not causing hair loss. We will obtain baseline CBC, CMP and as patient has history of anemia will consider iron studies, B12, folic acid level. And then she will return to clinic after CT PET scan for further discussion, and CT PET scan and CEA level ruled out metastatic disease, then will consider adjuvant therapy with oral Xeloda Signed By: Mio Pérez M.D. <<Signature on File>>
[2021-05-13 17:00] LABS: Alanine Aminotransferase 14 U/L (0-33); Albumin Level 3.8 g/dL (3.5-5.2); Alkaline Phosphatase 137 IU/L (35-105); Anion Gap 14.6 (5-19); Aspartate Amino Transferase 13 U/L (0-32); Blood Urea Nitrogen 17 mg/dL (8-23); Calcium 8.2 mg/dL (8.5-10.5); Carbon Dioxide 25 mmol/L (22-29); Chloride 103 mmol/L (98-107); Ferritin 11 ng/mL (15-150); Globulin 3.1 g/dL (1.3-4.6); Glucose 124 mg/dL (65-115); Iron 14 ug/dL (37-145); Osmolality Calculated 289 mOsm/kg (285-295); Percent Saturation 3.4 % (20-50); Potassium 4.6 mmol/L (3.5-5.1); Sodium 138 mmol/L (136-145); Total Bilirubin 0.2 mg/dL (0.15-1.2); Total Iron Binding Capacity 406 mcg/dl; Total Protein 6.9 g/dL (6.6-8.7); Unsaturated Iron Binding 392 ug/dL (112-347)
[2021-05-13 17:15] LABS: Vitamin B12 228 pg/mL (232-1245)
[2021-05-13 18:57] LABS: Carcinoembryonic Antigen 1.9 ng/mL (0.0-4.7)
[2021-08-13 17:46] LABS: Add RBC Morph No
== END 2021-05-13 14:36 | disposition home or self-care (01) ==
PROVIDERS: Family Provider Nurse Practitioner; PCP Nurse Practitioner; Visit Provider Internal Medicine Hematology & Oncology
DX: C18.0 Malignant neoplasm of cecum (principal); C77.8 Secondary and unspecified malignant neoplasm of lymph nodes of multiple regions; C78.7 Secondary malignant neoplasm of liver and intrahepatic bile duct; F03.90 Unspecified dementia, unspecified severity, without behavioral disturbance, psychotic disturbance, mood disturbance, and anxiety; D50.9 Iron deficiency anemia, unspecified; Z79.899 Other long term (current) drug therapy
CPT/HCPCS: 36415; 72072; 72100; 73522; 80053; 82378; 82607; 82728; 83540; 83550; 85025; 99205

== ENCOUNTER 2021-05-28 11:09 | Outpatient (CLI) | payer MEDICARE, OTHER, SELFPAY ==
--- NOTE | 2021-05-28 15:15 | ONC FU_ITS ---
Dr. Pérez follow up note Patient: Brenda De León Unit #: [id number]: 1945 Dicatated By: Mio Pérez M.D.Date of Visit:May 28, 2021 Onc Med Follow-up/Prog Note History of Present Illness: Ms. Brenda De León, is a 75-year-old female with history of anemia, requiring blood transfusion and history of repeated fall underwent EGD/colonoscopy on April 02, 2021 which showed at the ileocecal valve, and abnormality was noted. Presence of malignant-looking growth partially occluding the ileocecal junction and colonoscopy could not passed beyond that biopsy was obtained which confirmed adenocarcinoma subsequently on April 08, 2021 she underwent laparoscopic right hemicolectomy and final pathology report confirmed moderately differentiated, 7.7 cm tumor invades muscularis propria into pericolorectal tissue. No macroscopic tumor perforation seen. Lymphovascular invasion seen in large vessel, intramural. All margins were clear. 2 out of 16 lymph node positive for metastatic disease. pT3 pN1b CT scan of abdomen done on February 13, 2021 showed there to low-attenuation lesions in the right lobe of liver. Very nonspecific and too small to characterize but cannot exclude metastatic disease, cysts or hemangiomas CT PET scan done on May 26, 2021 showed no evidence of metastatic disease but substantial spine arthritic changes and large right renal simple cyst. , CEA was 1.9 Patient lives in assisted living, as per family has mild to moderate dementia and as per her granddaughter Jaiden who is a nurse at hospital in [facility], patient has expressed categorically no chemotherapy. Patient denies smoking alcohol use, denies any abdominal pain, denies any jaundice denies any hemoptysis hematemesis but history of melena and sometimes bleeding per rectum but she has history of hemorrhoids. And still complaining of fall off and on and 1 recently because discomfort/pain in the lower back for which she is being evaluated by PMD Came for follow-up, denies any specific complaints except chronic lower back pain due to severe arthritis, no mouth sores, no abdominal pain, no melena or hematochezia no hemoptysis hematemesis, no jaundice, surgical wound is healing well. Medications: Acetaminophen (500 mg) Tablet Oral Take as Directed, Aloe Vera 1 Capsule (of 500 mg) Oral b.i.d., Cetirizine HCl 1 Tablet (of 5 mg) Oral daily, Diclofenac Sodium 4 (1 %) Gel (jelly) Topical daily for 30 days PRN, Docusate Sodium 1 Capsule (of 100 mg) Oral daily, Donepezil HCl 1 Tablet (of 5 mg) Oral daily, EPINEPHrine Injection PRN, Fenofibrate 1 Tablet (of 145 mg) Oral daily, Lisinopril 1 Tablet (of 20 mg) Oral daily, Memantine HCl 1 Tablet (of 10 mg) Oral b.i.d., Mirtazapine 1 Tablet (of 15 mg) Oral at bedtime, Omeprazole 1 Capsule (of 20 mg) Capsule Delayed Release Oral daily, oxyCODONE-Acetaminophen 1 Tablet (of 5-325 mg) Oral at bedtime, Polyethylene Glycol 3350 (17 g) Powder daily Allergies: Codeine Sulfate, Cortisone Acetate, Naproxen, and Wasp stings. Review of Systems: Review of Systems is not available for this patient. Vital Signs: Performed on May 28, 2021 12:22 Height - 65.00 in Weight - 168.0 lbs (HIGH) BSA - 1.84 sq.m BMI - 27.96 Temperature - 96.6 F (LOW) Pulse - 99 /min Respiration - 16 /min BP - 164/80 mm(hg) (HIGH) O2 Sat - 99 % Pain - 0 Fatigue - 8 Performance Status: 1 - No physically strenuous activity, but ambulatory and able to carry out light or sedentary work (e.g. office work, light house work). (ECOG) Physical Examination: ENMT - No mouth sores, no thrush, no jaundice, Respiratory - Lungs are clear to auscultation, Cardiovascular - Regular rate and rhythm of heart, Abdomen - Soft, bowel sounds present, Extremities - No visible edema. Lab/Imaging: Most recent lab results are not available for this patient. 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 Dementia Iron deficiency anemia status post transfusion. Plan: Discussed with patient regarding her labs white blood count 5.4 hemoglobin 8.2 hematocrit 29.2 MCV 69 platelets 549,000 CMP within normal limits glucose 124 and anemia work-up shows ferritin 11 iron saturation 3.4 iron 14 TIBC 406 and CEA 109, B12 228 Clinically, patient is doing reasonably well, there was a concern regarding liver lesion seen on CT scan so CT PET scan was done on May 26, 2021 which shows no evidence of liver mets and her tumor marker CEA was also within normal range thus she has stage IIIa colon cancer, as per NCCN guidelines, she is a candidate for adjuvant chemotherapy but patient is declining intravenous chemo but will consider oral chemo in that case we will consider oral Xeloda 1250 mg per metered square p.o. twice daily day 1 through 14 and repeat every 21 days x 8. All the side effect possible benefits associated with oral Xeloda including but not limited to mouth sores, hand-foot syndrome, nausea vomiting diarrhea, skin rash, jaundice, hair loss,, further teaching will be done by chemotherapy nurse, will obtain approval from her insurance prior to the treatment. As far as iron deficiency anemia is concerned, will consider oral iron ferrous sulfate 325 mg 2 tablets p.o. daily As far as B12 deficiency is concerned, will consider B12 supplement Patient return to clinic 2 weeks after starting oral Xeloda with CBC CMP Signed By: Mio Pérez M.D. <<Signature on File>>
== END 2021-05-28 11:10 | disposition home or self-care (01) ==
PROVIDERS: PCP Nurse Practitioner; Visit Provider Internal Medicine Hematology & Oncology
DX: C18.0 Malignant neoplasm of cecum (principal); C77.8 Secondary and unspecified malignant neoplasm of lymph nodes of multiple regions; F03.90 Unspecified dementia, unspecified severity, without behavioral disturbance, psychotic disturbance, mood disturbance, and anxiety; D50.9 Iron deficiency anemia, unspecified; D51.9 Vitamin B12 deficiency anemia, unspecified; Z79.899 Other long term (current) drug therapy
CPT/HCPCS: 99214

== ENCOUNTER → 2021-06-29 11:36 | Outpatient (BNVA) | payer MEDICARE, OTHER, SELFPAY | PROVIDERS: PCP Nurse Practitioner; Visit Provider Nurse Practitioner | DX: R39.9 Unspecified symptoms and signs involving the genitourinary system (principal) | CPT/HCPCS: 81003; 87077; 87086; 87184 ==

== ENCOUNTER → 2021-08-12 12:03 | Outpatient (BNVA) | payer MEDICARE, OTHER, SELFPAY | PROVIDERS: PCP Nurse Practitioner; Visit Provider Nurse Practitioner | DX: E55.9 Vitamin D deficiency, unspecified (principal); I10 Essential (primary) hypertension; E61.1 Iron deficiency; E53.8 Deficiency of other specified B group vitamins | CPT/HCPCS: 80053; 82306; 82607; 83540; 85025 ==

== ENCOUNTER → 2021-08-19 10:29 | Outpatient (BNVA) | payer MEDICARE, OTHER, SELFPAY | PROVIDERS: PCP Nurse Practitioner; Visit Provider Nurse Practitioner | DX: R30.0 Dysuria (principal); N39.0 Urinary tract infection, site not specified; E55.9 Vitamin D deficiency, unspecified | CPT/HCPCS: 81000; 87077; 87086; 87184 ==

== ENCOUNTER 2021-09-18 13:28 | Outpatient (CLI) | payer MEDICARE, OTHER, SELFPAY ==
[2021-09-18 14:18] LABS: Basophils # 0.1 10^3/uL (0.0-0.1); Basophils % 0.8 %; Eosinophils # 0.2 10^3/uL (0.0-0.8); Hematocrit 45.9 % (37.0-47.0); Hemoglobin 14.8 g/dL (11.5-15.3); Lymphocytes # 2.2 10^3/uL (0.8-4.8); Lymphocytes % 35.3 %; Mean Corpuscular HGB Conc 32.2 g/dL (30.0-36.0); Mean Corpuscular Volume 99.4 fl (81-99); Monocytes # 0.4 10^3/uL (0.2-0.9); Monocytes % 6.7 %; Neutrophils # 3.37 10^3/uL (1.8-7.7); Nucleated Red Blood Cells % 0 %; Platelet Count 391 10^3/cmm (130-400); Red Blood Count 4.62 10^6/uL (4.1-5.3); Red Cell Distribution Width 16.6 % (12.1-15.1); White Blood Count 6.2 10^3/uL (4.0-10.0)
== END 2021-09-18 13:29 | disposition home or self-care (01) ==
LOC: LAB 13:32
PROVIDERS: PCP Nurse Practitioner; Visit Provider Internal Medicine
DX: D64.9 Anemia, unspecified (principal)
CPT/HCPCS: 85025

== ENCOUNTER 2021-12-11 12:26 | Emergency (ER) | payer MEDICARE, OTHER, SELFPAY ==
[2021-12-11] VITALS (7 sets, daily range): BP systolic 117–156; BP diastolic 69–115; PULSE 88–100; RESP 14–18; TEMP 36.6; O2SAT 93–100; BMI 28.3
--- NOTE | 2021-12-11 12:30 | CT_ITS ---
WS: [id number] CT HEAD TECHNIQUE: Noncontrast CT of the head obtained from the skullbase to the vertex. CLINICAL INFORMATION: weakness COMPARISON: CT July 04, 2020 DLP: 980.[address] scans at [facility] use at least one of these dose optimization techniques: automated e xposure control; mA and/or kV adjustment per patient size (includes targeted exams where dose is matc hed to clinical indication); or iterative reconstruction. FINDINGS: No evidence of intracranial hemorrhage or mass effect. Ventricular system and basal cisterns are hook nt. Moderate small vessel changes with moderate parenchymal volume loss. Chronic lacunar infarcts in the RIGHT basal ganglia. Cavernous carotid calcification. No extra-axial fluid collections. No eviden ce of mass or mass effect. Paranasal sinuses and mastoid air cells are well aerated. .Normal visualized soft tissues. CT/CT head wo con* [id number] IMPRESSION: 1. No evidence of intracranial hemorrhage or mass effect. 2. Moderate small vessel changes with moderate parenchymal volume loss. 3. No acute intracranial findings.
--- NOTE | 2021-12-11 13:04 | W.ED.GENADLT ---
HPI - General Adult General: Chief complaint: General Medical Stated complaint: weak left arm 2 days Time Seen by Provider: 12/11/21 12:28 Source: patient Mode of arrival: EMS Limitations: no limitations History of Present Illness: 76-year-old female presents emergency room complaining of left arm pain for the last 2 days she has some contracture in that arm as well. She usually lives in the [place] [facility]. She has significant dementia and is not able to give any meaningful assistance with history. We did call and verify at the patient's left arm symptoms are new. It is difficult to get her to follow any instructions to do physical testing. She is a domínguez negative review of systems where she does not seem significantly reliable. Patient is Do Not Recussitate. Onset (ago): day(s) (2) Relieving factors: none Associated symptoms: Reports confusion and short of breath; Deny chest pain, cough or vomiting Review of Systems General: Reports: ROS unobtainable due to mental status Card: Denies: chest pain GI: Denies: abdominal pain, vomiting or diarrhea Neuro: Reports: confusion PFSH ED PFSH: Medical History Acquired spondylolisthesis Allergic reaction to insect sting Wasp Breast tumor Cervical disc disease Chronic constipation Chronic right shoulder pain Chronic seasonal allergic rhinitis due to pollen Colon cancer January 2021 Degeneration of lumbar or lumbosacral intervertebral disc Essential hypertension Frontal lobe deficit Hypertriglyceridemia Lives in assisted living facility Vitamin B 12 deficiency Vitamin D deficiency Surgical History H/O arthroscopic knee surgery History of appendectomy History of arthroscopic surgery of shoulder History of carpal tunnel surgery of left wrist History of cholecystectomy History of left breast biopsy Negative biopsy Status post right hemicolectomy Family History Other Alcohol abuse Allergies Arthritis Cervical disc disease Heart disease Social History Alcohol intake: never Adopted: No Caregiver/support person: Yes Lives independently: No Household members: caregiver Housing: Assisted Living Facility Marital status: / Number of children: 3 Current occupational status: retired Current gender identity: Female Renetta/Sabianism: [employer] Physical Exam Const: GENERAL APPEARANCE: comfortable ORIENTATION/CONSCIOUSNESS: Yes awake HENMT: COMMON NORMALS: normocephalic, atraumatic and hearing grossly normal bilaterally HEAD & SCALP: normocephalic and atraumatic Neck/C-Spine: COMMON NORMALS: no JVD Resp: COMMON NORMALS: normal respiratory effort, No retractions, No use of accessory muscles and clear to auscultation bilaterally AUSCULTATION: clear to auscultation bilaterally Cardio: COMMON NORMALS: no JVD, regular rate, regular rhythm and No murmurs present (Cardio) RATE: regular rate RHYTHM: regular rhythm GI: COMMON NORMALS: Soft to palpation and No hepatosplenomegaly present AUSCULTATION: Yes normoactive bowel sounds PALPATION: Yes Soft to palpation, No Tenderness to palpation present (GI), No Guarding due to palpation present (GI) and Yes No hepatosplenomegaly present Skin: COMMON NORMALS: no rashes or lesions noted GENERAL SKIN EXAM: no rashes or lesions noted Course Vital Signs: Vital signs: Vital Signs Temperature 98 F 12/11/21 12:28 Pulse Rate 100 12/11/21 21:21 Respiratory Rate 18 12/11/21 21:21 Blood Pressure 117/80 12/11/21 21:21 Pulse Oximetry 95 12/11/21 14:30 [facility] - General Adult Medical Decision Making Labs and imaging reviewed. Patient has advancing dementia and at this point I do not think there is any significant intervention I can be done she is 2 days out from onset of the deficit is no interventional options. With her dementia she is not able to participate meaningfully in any therapy so admission to the hospital would not gain any thing. At this point she can be discharged back to the [place] [facility] continue routine cares. There are therapy options available at the [place] [facility] to the extent that she can benefit from them. Medical Records I reviewed the patient's medical records. Lab Data I reviewed the patient's lab results. : 12/11/21 12:30 12/11/21 15:[address] 12/11/21 12:30 IMPRESSION: 1. No evidence of intracranial hemorrhage or mass effect. 2. Moderate small vessel changes with moderate parenchymal volume loss. 3. No acute intracranial findings. Head/Neck CTA 12/11/21 14:03 IMPRESSION: No large vessel stenosis or occlusion. IMPRESSION: No stenosis or occlusion. REFERENCES: NASCET CRITERIA. The degree of internal carotid artery stenosis is based on NASCET criteria. Normal is no stenosis. Mild is less than 50% stenosis. Moderate is 50-69% stenosis. Severe is 70% to 99% stenosis. Total occlusion is no detectable patent lumen. Laboratory Results WBC 5.7 10^3/uL (4.0-10.0) 12/11/21 12:30 RBC 4.98 10^6/uL (4.1-5.3) 12/11/21 12:30 Hgb 15.3 g/dL (11.5-15.3) 12/11/21 12:30 Hct 45.7 % (37.0-47.0) 12/11/21 12:30 MCV 91.8 fl (81-99) 12/11/21 12:30 MCH 30.7 pg (28.0-34.0) 12/11/21 12:30 MCHC 33.5 g/dL (30.0-36.0) 12/11/21 12:30 RDW 13.2 % (12.1-15.1) 12/11/21 12:30 Plt Count 321 10^3/cmm (130-400) 12/11/21 12:30 MPV 10.8 fL (7.4-10.4) H 12/11/21 12:30 Neut % (Auto) 51.8 % 12/11/21 12:30 Lymph % (Auto) 35.1 % 12/11/21 12:30 Dixie % (Auto) 8.8 % 12/11/21 12:30 Eos % (Auto) 2.8 % 12/11/21 12:30 Baso % (Auto) 1.1 % 12/11/21 12:30 Neut # (Auto) 2.96 10^3/uL (1.8-7.7) 12/11/21 12:30 Lymph # (Auto) 2.0 10^3/uL (0.8-4.8) 12/11/21 12:30 Dixie # (Auto) 0.5 10^3/uL (0.2-0.9) 12/11/21 12:30 Eos # (Auto) 0.2 10^3/uL (0.0-0.8) 12/11/21 12:30 Baso # (Auto) 0.1 10^3/uL (0.0-0.1) 12/11/21 12:30 Nucleated RBC % (auto) 0 % 12/11/21 12:30 Nucleated RBCs # 0.0 /100WBC 12/11/21 12:30 Sodium 140 mmol/L (136-145) 12/11/21 15:08 Potassium 4.4 mmol/L (3.5-5.1) 12/11/21 15:08 Chloride 103 mmol/L (98-107) 12/11/21 15:08 Carbon Dioxide 22 mmol/L (22-29) 12/11/21 15:08 Anion Gap 19.4 (5-19) H 12/11/21 15:08 BUN 16 mg/dL (8-23) 12/11/21 15:08 Creatinine 0.8 mg/dL (0.5-0.9) 12/11/21 15:08 GFR Calculation Not Reportable 12/11/21 15:08 Glucose 105 mg/dL (65-115) 12/11/21 15:08 Calculated Osmolality 292 mOsm/kg (285-295) 12/11/21 15:08 Calcium 9.2 mg/dL (8.5-10.5) 12/11/21 15:08 Urine Color Yellow (Yellow) 12/11/21 14:31 Urine Appearance Cloudy (CLEAR) 12/11/21 14:31 Urine pH 7 (5-7) 12/11/21 14:31 Ur Specific Cass 1.015 (1.005-1.030) 12/11/21 14:31 Urine Protein Neg (Negative) 12/11/21 14:31 Urine Glucose (UA) Norm (Normal) 12/11/21 14:31 Urine Ketones Negative (Negative) 12/11/21 14:31 Urine Blood 2+ (Negative) H 12/11/21 14:31 Urine Nitrate Positive (Negative) H 12/11/21 14:31 Urine Bilirubin Neg (Negative) 12/11/21 14:31 Urine Urobilinogen Norm mg/dL (Negative) 12/11/21 14:31 Ur Leukocyte Esterase 2+ (Negative) H 12/11/21 14:31 Urine RBC 0-4 /hpf (0-2) H 12/11/21 14:31 Urine WBC Too numerous to cnt /hpf (0-5) H 12/11/21 14:31 Ur Squamous Epith Cells 0-4 /hpf (0-5) H 12/11/21 14:31 Triple Phos Crystals 1 /hpf 12/11/21 14:31 Amorphous Sediment Not Reportable 12/11/21 14:31 Urine Bacteria 2+ /hpf (NONE) H 12/11/21 14:31 Discharge Plan Discharge Patient Disposition: Home Clinical Impression: Left arm weakness, Contracture of joint of left forearm, CVA (cerebral vascular accident), Dementia Condition: Stable Prescriptions: No Action cetirizine 10 mg tablet 5 mg PO DAILY 0RF (DME) E0305 HCPSCS Code half length bed rail See Rx Instructions .Route .MEDSUPPLY Qty: 1 0RF Rx Instructions: As directed polyethylene glycol 3350 [Miralax] 17 gram/dose powder 17 g PO DAILY 0RF omeprazole 20 mg capsule,delayed release(DR/EC) 20 mg PO DAILY Qty: 90 0RF (DME) Wheelchair See Rx Instructions .Route .MEDSUPPLY Qty: 1 0RF Rx Instructions: As directed (DME) DME: Walker Unit See Rx Instructions .Route Qty: 1 0RF Rx Instructions: As directed ergocalciferol (vitamin D2) 1,250 mcg (50,000 unit) capsule 1,250 mcg PO .weekly Qty: 12 2RF Rx Instructions: please add to EMR medication sent to mail ordered pharmacy hydrocodone-acetaminophen 5-325 mg tablet 1 tab PO BEDTIME PRN (Reason: Pain) 0RF oxycodone-acetaminophen 5-325 mg tablet 1 tab PO BEDTIME 0RF Milk of Magnesia 400 mg/5 mL Suspension 15 ml PO BID PRN (Reason: Constipation) 0RF Dulcolax (bisacodyl) 10 mg Suppository 10 mg NM DAILY PRN (Reason: Constipation) 0RF FeroSul 325 mg (65 mg iron) Tablet 650 mg PO DAILY 0RF Fleet Enema 19-7 gram/118 mL Enema 118 ml NM DAILY PRN (Reason: Constipation) 0RF Dulcolax (bisacodyl) 5 mg Tablet,Delayed Release (Dr/Ec) 10 mg PO DAILY PRN (Reason: Constipation) 0RF diclofenac sodium 1 % gel 2 g TOPICAL DAILY PRN (Reason: Pain) 0RF lidocaine 5 % adhesive patch,medicated 2 patch topical .wear 12 hours PRN (Reason: Pain) 0RF Rx Instructions: leave on most painful area for up to 12 hrs Tylenol Extra Strength 500 mg Tablet 500 mg PO QID 0RF Discharge Orders: Discharge ED (Routine); Ordered 12/11/21 Ordered By: Doug Rowland Referrals: Bryn Schrader, DIRECTOR OF CARDIAC CATH LAB-C [Primary Care Provider] - Discharge Diet: Usual diet Discharge Activity: Resume usual activity Patient Instructions: Opioid Safety Coding Level of Care Code ED Dry Cleaning Teacher for Myron Ladd
--- NOTE | 2021-12-11 13:07 | ECG_ITS ---
[facility] Test Date: 2021-12-11 Pat Name: Brenda De León Department: Room: Gender: Female Ditch Rider: : 1945 Requested By: Doug Chase Order Number: [id number] Myles MD: Lenny Dee M.D. Measurements Intervals [place] Rate: 91 P: 58 SC: 198 QRS: 266 QRSD: 70 T: 45 QT: 352 QTc: 435 Interpretive Statements SINUS RHYTHM POSSIBLE RIGHT VENTRICULAR HYPERTROPHY [SOME/ALL OF: PROMINENT R IN V1, LATE TRANSITION, RAD, NAVEEN, SSS] POSSIBLE ANTERIOR MYOCARDIAL INFARCTION , OF INDETERMINATE AGE [30 ms Q WAVE IN V3/V4, OR R < 0.2 mV IN V4] INFERIOR MYOCARDIAL INFARCTION , PROBABLY OLD [40+ ms Q WAVE AND/OR ST/T ABNORMALITY IN II/aVF] Compared to ECG 07/04/2020 23:26:54 Myocardial infarct finding now present T-wave abnormality no longer present Electronically Signed On 12-11-2021 18:14:46 CDT by Lenny Dee M.D. [email or web address] [email or web address] [id number]
--- NOTE | 2021-12-11 14:03 | CTR_ITS ---
PROCEDURE INFORMATION: Exam: CTA Head With Contrast, Arteriography Exam date and time: 12/11/2021 4:10 PM Age: 76 years old Clinical indication: Weakness; Additional info: L sided weakness TECHNIQUE: Imaging protocol: Computed tomographic angiography of the head with contrast. Exam focused on the arteries. 3D rendering (Not supervised by radiologist): MIP and/or 3D reconstructed images were created by the technologist. Radiation optimization: All CT scans at this facility use at least one of these dose optimization techniques: automated exposure control; mA and/or kV adjustment per patient size (includes targeted exams where dose is matched to clinical indication); or iterative reconstruction. Contrast material: OMNI 350; Contrast volume: 95 ml; Contrast route: INTRAVENOUS (IV); COMPARISON: CT head wo con* [id number] 12/11/2021 1:06 PM RADIATION DOSE METRICS: Total DLP (mGy-cm): 408.05 FINDINGS: ANTERIOR CIRCULATION: Right internal carotid artery: Unremarkable. Intracranial segment is patent with no significant stenosis. No aneurysm. Right middle cerebral artery: Unremarkable. No occlusion or significant stenosis. No aneurysm. Right anterior cerebral artery: Unremarkable. No occlusion or significant stenosis. No aneurysm. Left internal carotid artery: Unremarkable. Intracranial segment is patent with no significant stenosis. No aneurysm. Left middle cerebral artery: Unremarkable. No occlusion or significant stenosis. No aneurysm. Left anterior cerebral artery: Unremarkable. No occlusion or significant stenosis. No aneurysm. POSTERIOR CIRCULATION: Right vertebral artery: Unremarkable. No occlusion or significant stenosis. No aneurysm. Left vertebral artery: Unremarkable. No occlusion or significant stenosis. No aneurysm. Basilar artery: Unremarkable. No occlusion or significant stenosis. No aneurysm. Right posterior cerebral artery: Unremarkable. No occlusion or significant stenosis. No aneurysm. Left posterior cerebral artery: Unremarkable. No occlusion or significant stenosis. No aneurysm. Brain: No definite mass, mass effect, or midline shift. Cerebral ventricles: No ventriculomegaly. Bones/joints: Unremarkable. No acute fracture. Soft tissues: Unremarkable. PROCEDURE INFORMATION: Exam: CTA Neck With Contrast Exam date and time: 12/11/2021 4:10 PM Age: 76 years old Clinical indication: Weakness; Additional info: L sided weakness TECHNIQUE: Imaging protocol: Computed tomographic angiography of the neck with contrast. 3D rendering (Not supervised by radiologist): MIP and/or 3D reconstructed images were created by the technologist. Radiation optimization: All CT scans at this facility use at least one of these dose optimization techniques: automated exposure control; mA and/or kV adjustment per patient size (includes targeted exams where dose is matched to clinical indication); or iterative reconstruction. Contrast material: OMNI 350; Contrast volume: 95 ml; Contrast route: INTRAVENOUS (IV); COMPARISON: CT neck w con* [id number] 03/06/2015 9:42 AM RADIATION DOSE METRICS: Total DLP (mGy-cm): 408.05 FINDINGS: Right common carotid artery: No stenosis. No dissection or occlusion. Right internal carotid artery: No stenosis of the extracranial segment. No dissection or occlusion. Right external carotid artery: No occlusion or stenosis of the origin. Left common carotid artery: No stenosis. No dissection or occlusion. Left internal carotid artery: No stenosis of the extracranial segment. No dissection or occlusion. Left external carotid artery: No occlusion or stenosis of the origin. Right vertebral artery: No stenosis. No dissection or occlusion. Left vertebral artery: No stenosis. No dissection or occlusion. Soft tissues: Normal. No significant soft tissue swelling. Bones/joints: No acute fracture. CT/CT angio headneck* [id number] IMPRESSION: No large vessel stenosis or occlusion. IMPRESSION: No stenosis or occlusion. REFERENCES: NASCET CRITERIA. The degree of internal carotid artery stenosis is based on NASCET criteria. Normal is no stenosis. Mild is less than 50% stenosis. Moderate is 50-69% stenosis. Severe is 70% to 99% stenosis. Total occlusion is no detectable patent lumen.
[2021-12-11 14:04] LABS: Basophils # 0.1 10^3/uL (0.0-0.1); Basophils % 1.1 %; Eosinophils # 0.2 10^3/uL (0.0-0.8); Eosinophils % 2.8 %; Hematocrit 45.7 % (37.0-47.0); Hemoglobin 15.3 g/dL (11.5-15.3); Lymphocytes % 35.1 %; Mean Corpuscular HGB Conc 33.5 g/dL (30.0-36.0); Mean Corpuscular Hemoglobin 30.7 pg (28.0-34.0); Mean Corpuscular Volume 91.8 fl (81-99); Mean Platelet Volume 10.8 fL (7.4-10.4); Monocytes # 0.5 10^3/uL (0.2-0.9); Monocytes % 8.8 %; Neutrophils # 2.96 10^3/uL (1.8-7.7); Neutrophils % 51.8 %; Nucleated Red Blood Cells % 0 %; Platelet Count 321 10^3/cmm (130-400); Red Blood Count 4.98 10^6/uL (4.1-5.3); Red Cell Distribution Width 13.2 % (12.1-15.1); White Blood Count 5.7 10^3/uL (4.0-10.0)
[2021-12-11 15:23] LABS: Protein Urine Neg (Negative); Specific Gravity, Urine 1.015 (1.005-1.030); Urine Appearance Cloudy (CLEAR); Urine Color Yellow (Yellow); pH Urine 7 (5-7)
[2021-12-11 15:24] LABS: Add Urine Microscopic? YES; Bilirubin Urine Neg (Negative); Blood Urine 2+ (Negative); Glucose Urine UA Norm (Normal); Ketones Urine Negative (Negative); Leukocyte Esterase Urine 2+ (Negative); Nitrate Urine Positive (Negative); Urobilinogen Urine Norm (Negative)
[2021-12-11 15:38] LABS: Blood Urea Nitrogen 16 mg/dL (8-23); Calcium 9.2 mg/dL (8.5-10.5); Carbon Dioxide 22 mmol/L (22-29); Chloride 103 mmol/L (98-107); Glucose 105 mg/dL (65-115); Osmolality Calculated 292 mOsm/kg (285-295); Sodium 140 mmol/L (136-145)
[2021-12-11 15:41] LABS: Anion Gap 19.4 (5-19); Potassium 4.4 mmol/L (3.5-5.1)
[2021-12-11 15:47] LABS: Add Urine Culture? Yes; Bacteria Urine 2+ /hpf; RBC Urine 0-4 /hpf (0-2); Squamous Epithelial Cell Urine 0-4 /hpf (0-5); Triple Phosphate Crystal Urine 1 /hpf; WBC Urine TOO NUMEROUS TO CNT /hpf (0-5)
[2021-12-11] MEDS: iohexol 350 mg/mL 100 mL Btl IV (16:22)
[2021-12-11] MEDS: cefTRIAXone 1,000 mg SDV 1000 MG IM (16:50)
== END 2021-12-11 22:20 | disposition home or self-care (01) ==
PROVIDERS: Emergency Provider Family Medicine; PCP Nurse Practitioner
DX: I63.9 Cerebral infarction, unspecified (principal); F03.90 Unspecified dementia, unspecified severity, without behavioral disturbance, psychotic disturbance, mood disturbance, and anxiety; R53.1 Weakness; M24.59 Contracture, other specified joint
CPT/HCPCS: 70450; 70496; 70498; 80048; 81001; 85025; 87077; 87086; 87186; 93005; 96372; 99285; J0696; Q9967